=== PATIENT | female | born 1980 | race American Indian/Alaskan Native ===

== ENCOUNTER 2016-08-26 11:35 | Outpatient (CLI) | payer BC ==
--- NOTE | 2016-08-26 14:49 | Ultrasound Report ---
BILATERAL DIGITAL DIAGNOSTIC MAMMOGRAM with CAD and LEFT BREAST ULTRASOUND: 08/26/16 11:35:00 CLINICAL: Left brownish and reddish nipple discharge. COMPARISON:None. FINDINGS: The breasts are heterogeneously dense, which may obscure small masses and the breasts are of sufficient density to limit the sensitivity of mammography.No mass, architectural distortion or suspicious calcifications. No mammographic abnormality is identified and a palpable marker at 6 o'clock just a few centimeters from the nipple. Ultrasound of the left breast (including all four quadrants and the retroareolar area) was performed. A dilated duct is identified at 3:30 o'clock 4 cm from the nipple. It contains a 1.7 x 0.5 x 0.5 cm mass. No blood flow was detected by color Doppler. No other mass and no cysts or suspicious shadowing. IMPRESSION: A 1.7 cm intraductal mass at 3:30 o'clock 4 cm from the nipple. BI-RADS CATEGORY: 4--Suspicious RECOMMENDATION: Ultrasound-guided vacuum-assisted needle core biopsy. ACR BI-RADS MAMMOGRAPHIC CODES: 0 = Needs additional imaging evaluation; 1 = Negative; 2 = Benign; 3 = Probably benign; 4 = Suspicious; 5 = Malignant; 6 = Known biopsy-proven malignancy COMMENT: 1. Dense breast tissue, i.e., adenosis, fibrocystic changes, etc., may obscure an underlying neoplasm. 2. Approximately 10% of cancers are not detected with mammography. 3. A negative mammography report should not delay biopsy if a clinically suspicious mass is present. COMMENT: Patient follow-up letters are generated by our [employer] application.
== END 2016-08-26 11:36 | disposition home or self-care (01) ==
LOC: SPVWC 11:35
PROVIDERS: ATTEND Surgery
DX: N64.52 Nipple discharge (principal); N63 Unspecified lump in breast
CPT/HCPCS: 76641; G0204; 77066

== ENCOUNTER 2016-09-16 07:21 | Inpatient (IN) | payer BC ==
[2016-09-16] MEDS ORDERED: XYLOCAINE 1% 20 mL ONE (08:06)
[2016-09-16] MEDS ORDERED: SUBLIMAZE IV PRN (08:36)
[2016-09-16] MEDS ORDERED: ZOFRAN IV PRN (08:36)
[2016-09-16] MEDS ORDERED: VERSED IV NR (09:00)
[2016-09-16] MEDS ORDERED: PEPCID PO NR (09:00)
[2016-09-16] MEDS ORDERED: DILAUDID ONE (09:23)
[2016-09-16] MEDS ORDERED: DIPRIVAN 10 MG/ML IV ONE (09:23)
[2016-09-16] MEDS ORDERED: XYLOCAINE MPF 2% ONE (09:24)
[2016-09-16] MEDS ORDERED: NACL BACTERIOSTATIC INFILTRATI ONE (09:46)
--- NOTE | 2016-09-16 09:59 | Anesthesia Day of Surgery ---
Anesthesia Day of Surgery - Day of Surgery Patient Examined: Yes Patient H&P Reviewed: Yes Patient is NPO: Yes
--- NOTE | 2016-09-16 10:01 | Anesthesia Consultation ---
Anesthesia Consult and Med Hx - Airway Anesthetic Teeth Evaluation: Good ROM Head & Neck: Adequate Mental/Hyoid Distance: Adequate Mallampati Class: Class II Intubation Access Assessment: Probably Good - Pulmonary Exam CTA: Yes - Cardiac Exam Cardiac Exam: No Murmur - Pre-Operative Health Status ASA Pre-Surgery Classification: ASA2 Proposed Anesthetic Plan: General - Pulmonary Hx Smoking: No Hx Sleep Apnea: No - Central Nervous System Hx Psychiatric Problems: No - Other Systems Hx Alcohol Use: Yes (occasional) Hx Cancer: No - Additional Comments Anesthesia Medical History Comments: NPO after MN. Pt had what appeared to be a vagal episode during needle loc which was similar to episode with bx.EKG pending. Possible reaction to Lidocaine.
--- NOTE | 2016-09-16 10:18 | Procedure Note ---
Date of procedure: 09/16/16 Pre-op diagnosis: lt. breast lesion Post-op diagnosis: same Procedure: lt.breast loc Findings: n/a Anesthesia: local Surgeon: DEDRICK FISH Estimated blood loss: none Pathology: none Condition: stable (surgery)
[2016-09-16] MEDS: NACL 0.9% 1000 ML 1,000 ML IV SCH (10:20)
[2016-09-16] MEDS ORDERED: ANCEF/STERILE WATER 2 GM/20 ML 2 GM/20 ML SYRINGE IV ONE (10:26)
--- NOTE | 2016-09-16 10:35 | Short Stay Summary ---
Short Stay Documentation Date of service: 09/16/16 - History H&P: obtained from office - Allergies and Medications Current Medications: Allergies grapefruit Allergy (Verified 09/12/16 10:47) Swelling of throat, hives, respiratory distress meperidine HCl [From Demerol] Allergy (Verified 09/12/16 10:47) PUTS ME IN A TRANCE LIKE STATE promethazine HCl [From Phenergan] Allergy (Verified 09/12/16 10:47) PUTS ME IN A TRANCE LIKE STATE Home Medications Medication Instructions Recorded Confirmed Last Taken Type No Known Home Medications [No 09/12/16 09/12/16 Unknown History Reported Home Medications] Active Medications Famotidine (Pepcid) 20 mg PO PREOP NR Stop: 09/16/16 23:59 Last Admin: 09/16/16 10:17 Dose: 20 mg Fentanyl (Sublimaze) 50 mcg IV Q5MIN PRN PRN Reason: Pain , Severe (7-10) Stop: 09/16/16 16:00 Hydromorphone HCl (Dilaudid) 0.25 mg IV Q10MIN PRN PRN Reason: Pain, Moderate (4-6) Stop: 09/16/16 16:00 Sodium Chloride (Nacl 0.9% 1000 Ml) 1,000 mls @ 100 mls/hr IV DIRECT ROMAN Last Admin: 09/16/16 10:20 Dose: 100 mls/hr Midazolam HCl (Versed) 2 mg IV PREOP NR Stop: 09/16/16 23:59 Last Admin: 09/16/16 10:24 Dose: 2 mg Ondansetron HCl (Zofran) 4 mg IV ONCE PRN PRN Reason: Nausea And Vomiting Stop: 09/16/16 16:00 - Brief post op/procedure progress note Date of procedure: 09/16/16 Pre-op diagnosis: Left breast intraductal papilloma and bloody nipple discharge Post-op diagnosis: same Procedure: Left needle localization excisional biopsy and left nipple terminal duct excisional biopsy Anesthesia: GETA Findings: Wire and clip present within radiograph specimen; left nipple terminal duct excisional biopsy Surgeon: GORDON MATOS Estimated blood loss: minimal Pathology: list (left terminal duct excisional biopsy, left needle localization excisional biopsy) Specimen disposition: to lab Condition: stable - Disposition Condition at discharge: Good Disposition: DISCHARGED TO HOME OR SELFCARE Short Stay Discharge Plan Activity: other (no heavy lifting) Diet: regular Wound: other (keep incision clean and dry; may shower in 24 hours; no baths, pools or lakes) Follow up with: RUBEN CAVAZOS MD [Primary Care Provider] - 7 Days GORDON MATOS MD [Staff Physician] - 7 Days Prescriptions: HYDROcodone/APAP 5-325 [[place] 5/325] 1 each PO Q6HR PRN #30 tablet PRN Reason: Pain
[2016-09-16] MEDS ORDERED: ceFAZolin 2 GM in NACL 0.9% 100 ML IV ONE (10:36)
--- NOTE | 2016-09-16 10:53 | Mammography Report ---
Left needle localization: Using mammographic grid technique with an inferior approach a localizing marker was targeted. The skin was cleansed and 1% lidocaine used local anesthesia. A 5 cm needle was successfully placed adjacent to the marker confirmed with mammography. A wire was then introduced with removal of the needle was additional mammographic confirmation. It is of note that the patient had vasovagal responses during the study with no sequelae.
[2016-09-16] MEDS ORDERED: WATER FOR IRRIG STERILE IR ONE (10:58)
[2016-09-16] MEDS ORDERED: ANCEF/STERILE WATER 2 GM/20 ML 2 GM/20 ML SYRINGE IV SCH (11:00)
--- NOTE | 2016-09-16 11:43 | Mammography Report ---
Operative surgical specimen: A single tissue specimen is submitted that includes the localizing wire and targeted marker.
--- NOTE | 2016-09-16 13:03 | Operative Report ---
Operative Report Operative Report: Date of procedure:September 16, 2016 Pre-operative diagnosis: Left bloody nipple discharge and left breast intraductal papilloma Post-operative diagnosis: Same Procedure name(s): Left nipple terminal duct excisional biopsy and left breast needle localization excisional biopsy of intraductal papilloma Surgeon: Marbella Coulter MD Anesthesia: General Findings: Left Drains: None Complications: None Disposition: PACU in good condition Indications for operative procedure:This is a 35 year old lady with known left breast intraductal papilloma at the 4 o'clock position 4 cm from nipple and left nipple spontaneous bloody nipple discharge. Recommendations were to proceed with a left nipple terminal duct excisional biopsy and left needle localization excisional biopsy of known intraductal papilloma. Patient wished to proceed with the above procedure. Procedure in Detail: Radiology placed localizing wire to identify the area of clip present from prior papilloma biopsy. Patient was taken to the operative room and was laid supine. Gen. anesthesia was administered. The left breast was prepped and draped in the normal sterile operative fashion. Lacrimal probe was placed inside duct that was noted to have spontaneous bleeding. The left lateral breast wire was identified. A skin incision was made with a 15 blade knife with dissection taken down to the subcutaneous tissues. First began with raising of superior flap followed laterally, inferiorly and then medially. The excisional biopsy of known papilloma was then removed posteriorly with the Bovie cautery. Hemostasis was noted. Specimen was appropriately marked and sent to pathology. Attention was then taken towards the left nipple terminal duct excisional biopsy. A skin incision was made around the nipple areolar complex with a 15 blade knife and then began raising of the flap posterior to the nipple for excision of the terminal ducts that was then taken down posteriorly. The lacrimal probe was encountered with duct of concern identified that was appropriately dissected down posteriorly with dissection taken down 3 cm and tissue appropriately removed. Superior to the duct of concern nodule was noted and was left intact with the specimen. The specimen was then taken to pathology and appropriately oriented for the pathologist for identification of the duct with concerns of additional papilloma/nodule posterior to the nipple at the superior aspect of the duct. Attention was then taken towards the closure of both breast incisions. The left lateral breast incision was noted for hemostasis. The cavity was irrigated and suctioned. The subcutaneous tissues were approximated and closed with interrupted 3-0 Vicryl and running 4-0 Monocryl and skin affix. Hemostasis was obtained with a Bovie cautery of the nipple areolar complex incision. Cavity was appropriately irrigated and suctioned. The subcutaneous tissues were approximated and closed using interrupted 3-0 Vicryl and running 4- 0 Monocryl and skin affix. The patient tolerated surgery very well and she was awakened from anesthesia without any complications and transferred to PACU in good condition.
[2016-09-16] MEDS ORDERED: DECADRON ONE (13:32)
[2016-09-16] MEDS ORDERED: BREVIBLOC IV ONE (13:32)
[2016-09-16] MEDS ORDERED: ZOFRAN ONE (13:32)
[2016-09-16] MEDS ORDERED: VERSED ONE (13:33)
[2016-09-16] MEDS: DILAUDID IV PRN ×5 (13:41→20:59)
--- NOTE | 2016-09-16 13:52 | Post Anesthesia Evaluation ---
- Post Anesthesia Evaluation Patient Participated: Yes Airway Patent: Yes Stable Respiratory Function: Yes Nausea/Vomiting: No Temp > 96.8F: Yes Pain Manageable: Yes Adequeate Hydration: Yes Anesthesia Complications: No Block Receding Appropriately: Not Applicable Patient on Ventilator: No
[2016-09-16] MEDS ORDERED: TORADOL ONE (14:02)
[2016-09-16] MEDS ORDERED: TORADOL IV PRN (14:06)
[2016-09-16] MEDS ORDERED: TORADOL IV ONE (14:15)
[2016-09-16] MEDS ORDERED: NORCO 5/325 PO PRN ×2 (14:30→16:22)
--- NOTE | 2016-09-16 16:12 | Progress Note ---
Subjective Date of service: 09/16/16 Principal diagnosis: Seizures Interval history: Patient had seizures x 2 in the PACU recovery. Lasted about 1 minute and consisted of patient shaking all over and becoming unresponsive. No tongue biting or urination/defecation. Seizures were about 15 minutes apart. She was given Versed 2mg initially. Currently, patient is doing well and responsive, answering questions, alert and oriented. She reports having a seizure once before 10 yrs ago after a tubal ligation. She was told the cause may have been the anesthesia. Dr. Cuevas (hospitalist) called to see patient since there is no neurologist radiotelephone operator. Dr. Cuevas will admit the patient. Objective - Constitutional Vitals: Vital Signs - 12hr 09/16/16 09/16/16 09/16/16 08:00 08:02 12:48 Temperature 97.9 F 97.9 F 99.1 F Pulse Rate 84 83 100 H Respiratory 20 20 22 Rate Blood Pressure 131/88 131/88 131/83 O2 Sat by Pulse 99 99 100 Oximetry 09/16/16 09/16/16 09/16/16 12:55 13:00 13:10 Temperature Pulse Rate 94 H 88 99 H Respiratory 22 14 14 Rate Blood Pressure 123/75 122/89 122/89 O2 Sat by Pulse 100 100 100 Oximetry 09/16/16 09/16/16 09/16/16 13:30 13:41 13:53 Temperature Pulse Rate 91 H Respiratory 20 20 21 Rate Blood Pressure 122/90 O2 Sat by Pulse 99 Oximetry 09/16/16 09/16/16 09/16/16 13:58 14:09 14:11 Temperature Pulse Rate 90 Respiratory 14 16 20 Rate Blood Pressure 123/87 O2 Sat by Pulse 99 Oximetry 09/16/16 14:12 Temperature Pulse Rate Respiratory 16 Rate Blood Pressure O2 Sat by Pulse Oximetry - Labs CBC & Chem 7: 09/16/16 15:24 09/16/16 15:25
[2016-09-16 16:32] LABS: Hematocrit 40.2 % (30.3-42.9); Hemoglobin 12.9 gm/dl (10.1-14.3); Mean Corpuscular HGB Conc 32 % (30-34); Mean Corpuscular Hemoglobin 28 pg (28-32); Mean Corpuscular Volume 89 fl (79-97); Platelet Count 174 K/mm3 (140-440); Red Blood Count 4.53 M/mm3 (3.65-5.03); Red Cell Distribution Width 12.9 % (13.2-15.2); White Blood Count 3.5 K/mm3 (4.5-11.0)
[2016-09-16 16:48] LABS: Magnesium 1.6 mg/dL (1.7-2.3); Phosphorous 2.8 mg/dL (2.5-4.5)
[2016-09-16 16:49] LABS: Anion Gap 14 mmol/L; BUN/Creatinine Ratio 13.33; Blood Urea Nitrogen 8 mg/dL (7-17); Calcium 8.3 mg/dL (8.4-10.2); Carbon Dioxide 22 mmol/L (22-30); Chloride 104.9 mmol/L (98-107); Glucose 111 mg/dL (65-100); Potassium 4.2 mmol/L (3.6-5.0); Sodium 137 mmol/L (137-145)
[2016-09-16] MEDS ORDERED: DULCOLAX PR PRN (17:29)
[2016-09-16] MEDS ORDERED: TYLENOL PO PRN (17:29)
[2016-09-16] MEDS ORDERED: MILK OF MAGNESIA PO PRN (17:29)
[2016-09-16] MEDS ORDERED: PERCOCET 5/325 PO PRN (17:29)
--- NOTE | 2016-09-16 17:29 | History and Physical Report ---
History of Present Illness Date of examination: 09/16/16 Date of admission: 09/16/16 Chief complaint: Seizures-postop x2 in PACU History of present illness: 35-year-old female underwent outpatient procedure for left bloody nipple discharge and left breast intraductal papilloma who developed seizures 2 postoperatively. Seizures were described as generalized tonic-clonic lasting for approximately 1 minute and 15 minutes apart. Patient was admitted to the hospital for further evaluation. Patient developed 2 more seizures this morning. Code met was called. Upon my arrival, patient was noted to be in a post ictal state but hemodynamically stable. No new seizure activity. Past History Past Medical History: No medical history Past Surgical History: Other (L Breast excisional biopsy) Social history: no significant social history, lives with family, full code Family history: hypertension Medications and Allergies Allergies Allergy/AdvReac Type Severity Reaction Status Date / Time grapefruit Allergy Swelling Verified 09/12/16 10:47 of throat, hives, respiratory distress meperidine HCl [From Demerol] Allergy PUTS ME IN Verified 09/12/16 10:47 A TRANCE LIKE STATE promethazine HCl Allergy PUTS ME IN Verified 09/12/16 10:47 [From Phenergan] A TRANCE LIKE STATE lidocaine AdvReac Unknown Verified 09/16/16 11:09 Home Medications Medication Instructions Recorded Confirmed Last Taken Type HYDROcodone/APAP 5-325 [[place] 1 each PO Q6HR PRN #30 tablet 09/16/16 Unknown Rx 5/325] Active Meds: Active Medications Acetaminophen/Hydrocodone Bitart ([place] 5/325) 1 each PO Q6H PRN PRN Reason: Pain, Moderate (4-6) Stop: 09/16/16 23:59 Acetaminophen/Hydrocodone Bitart ([place] 5/325) 1 each PO Q4H PRN PRN Reason: Pain, Moderate (4-6) Last Admin: 09/16/16 16:46 Dose: 1 each Famotidine (Pepcid) 20 mg PO PREOP NR Stop: 09/16/16 23:59 Last Admin: 09/16/16 10:17 Dose: 20 mg Sodium Chloride (Nacl 0.9% 1000 Ml) 1,000 mls @ 100 mls/hr IV DIRECT ROMAN Last Admin: 09/16/16 10:20 Dose: 100 mls/hr Cefazolin Sodium (Ancef/Sterile Water 2 Gm/20 Ml) 2 gm in 20 mls @ 80 mls/hr IV PREOP ROMAN Stop: 09/16/16 23:59 Midazolam HCl (Versed) 2 mg IV PREOP NR Stop: 09/16/16 23:59 Last Admin: 09/16/16 10:24 Dose: 2 mg Review of Systems All systems: negative Constitutional: no weight loss, no weight gain, no fever Ears, nose, mouth and throat: no hoarseness, no sore throat Breasts: no mass Cardiovascular: no lightheadedness, no shortness of breath, no dyspnea on exertion Respiratory: no shortness of breath, no dyspnea on exertion, no congestion Gastrointestinal: no nausea, no vomiting, no diarrhea Genitourinary Female: no pelvic pain, no flank pain, no menorrhagia, no dysuria , no urinary frequency, no urgency, no stress incontinence Musculoskeletal: no neck stiffness, no neck pain Integumentary: no rash, no pruritis, no redness, no sores, no wounds Neurological: seizures, convulsions, no syncope Psychiatric: no anxiety, no memory loss, no change in sleep habits Endocrine: no polyphagia, no excessive thirst, no polydipsia, no polyuria Hematologic/Lymphatic: no easy bruising, no easy bleeding Allergic/Immunologic: no urticaria, no allergic rhinitis, no wheezing Exam - Physical Exam Narrative exam: Well developed well nourished female - Constitutional Vitals: Temp Pulse Resp BP Pulse Ox 99 F 106 H 19 126/94 98 09/16/16 17:10 09/16/16 17:10 09/16/16 17:10 09/16/16 17:10 09/16/16 17:10 General appearance: Present: no acute distress, well-nourished - EENT Eyes: Present: PERRL ENT: hearing intact, clear oral mucosa - Neck Neck: Present: supple, normal ROM - Respiratory Respiratory effort: normal Respiratory: bilateral: CTA - Cardiovascular Rhythm: regular Heart Sounds: Present: S1 & S2. Absent: rub, click - Extremities Extremities: pulses symmetrical, No edema Peripheral Pulses: within normal limits - Abdominal General gastrointestinal: Present: soft, non-tender, non-distended, normal bowel sounds Female genitourinary: Present: normal - Integumentary Integumentary: Present: clear, warm, dry - Musculoskeletal Musculoskeletal: gait normal, strength equal bilaterally - Psychiatric Psychiatric: appropriate mood/affect, intact judgment & insight - Neurologic Neurologic: CNII-XII intact, moves all extremities - Allied Health Allied health notes reviewed: nursing, case management Results - Labs CBC & Chem 7: 09/17/16 05:13 09/17/16 05:13 Labs: Laboratory Last Values WBC 3.5 K/mm3 (4.5-11.0) L 09/16/16 15:24 RBC 4.53 M/mm3 (3.65-5.03) 09/16/16 15:24 Hgb 12.9 gm/dl (10.1-14.3) 09/16/16 15:24 Hct 40.2 % (30.3-42.9) 09/16/16 15:24 MCV 89 fl (79-97) 09/16/16 15:24 MCH 28 pg (28-32) 09/16/16 15:24 MCHC 32 % (30-34) 09/16/16 15:24 RDW 12.9 % (13.2-15.2) L 09/16/16 15:24 Plt Count 174 K/mm3 (140-440) 09/16/16 15:24 Sodium 137 mmol/L (137-145) 09/16/16 15:25 Potassium 4.2 mmol/L (3.6-5.0) 09/16/16 15:25 Chloride 104.9 mmol/L (98-107) 09/16/16 15:25 Carbon Dioxide 22 mmol/L (22-30) 09/16/16 15:25 Anion Gap 14 mmol/L 09/16/16 15:25 BUN 8 mg/dL (7-17) 09/16/16 15:25 Creatinine 0.6 mg/dL (0.7-1.2) L 09/16/16 15:25 Estimated GFR > 60 ml/min 09/16/16 15:25 BUN/Creatinine Ratio 13.33 % 09/16/16 15:25 Glucose 111 mg/dL (65-100) H 09/16/16 15:25 Calcium 8.3 mg/dL (8.4-10.2) L 09/16/16 15:25 Phosphorus 2.8 mg/dL (2.5-4.5) 09/16/16 15:28 Magnesium 1.6 mg/dL (1.7-2.3) L 09/16/16 15:28 Short CBC 09/16/16 09/16/16 09/17/16 Range/Units 15:24 19:45 05:13 WBC 3.5 L 5.2 3.9 L (4.5-11.0) K/mm3 Hgb 12.9 12.1 12.0 (10.1-14.3) gm/dl Hct 40.2 37.6 36.3 (30.3-42.9) % Plt Count 174 171 152 (140-440) K/mm3 BMP 09/16/16 09/16/16 09/17/16 15:25 19:45 05:13 Sodium 137 138 142 Potassium 4.2 4.0 3.7 Chloride 104.9 106.0 109.9 H Carbon Dioxide 22 20 L 20 L BUN 8 8 8 Creatinine 0.6 L 0.5 L 0.5 L Glucose 111 H 104 H 88 Calcium 8.3 L 8.0 L 8.1 L Assessment and Plan Advance Directives: Yes (Full code) VTE prophylaxis?: Chemical Plan of care discussed with patient/family: Yes - Patient Problems (1) Seizure disorder Current Visit: Yes Status: Acute Plan to address problem: New onset.Postop anesthesia complication sec to Anesthetic drugs in differential diagnosis.Will start on IV Keppra 750 mg q12.Possibly EEG.Seizures more Myoclonic than clonic tonic seizures. Also Ativan 1 mg prn Neurology consult ordered. (2) Breast mass, left Current Visit: Yes Status: Acute Plan to address problem: Patient had excisional biopsy of L breast (3) Encephalopathy acute Current Visit: Yes Status: Acute Plan to address problem: Post ictal. (4) DVT prophylaxis Current Visit: Yes Status: Acute Plan to address problem: On Lovenox
[2016-09-16] MEDS ORDERED: ATIVAN ONE (17:36)
[2016-09-16] MEDS ORDERED: ATIVAN IV ONE (18:00)
--- NOTE | 2016-09-16 18:25 | Admit Criteria Form ---
Admission Criteria Documentation: SEIZURE Clinical Indications for Admission to Inpatient Care (Place 'X' for any and all applicable criteria): Admission is indicated for seizure and ANY ONE of the following(1)(2)(3)(4)(5): [ X]I. Inpatient admission required rather than observation care (Also use Seizure: Observation Care Criteria as appropriate) because of ANY ONE of the following: [ ]a) Altered mental status that is severe or persistent [ ]b) New focal neurologic deficit that is severe or persistent [ ]c) Metabolic disorder (eg, hypoglycemia, hyponatremia) that is severe or persistent [ ]d) Recurrent seizure [ ]e) Outpatient antiseizure regimen cannot be established (eg , patient cannot tolerate medication, initiation requires inpatient care) [ ]f) Need for ongoing intravenous infusion of antiseizure medication [ ]g) Cardiac arrhythmias of immediate concern [ ]h) Cerebral bleeding, hydrocephalus, or vasospasm monitoring (14) [ ]i) Increased intracranial pressure or cerebral edema monitoring (15) [X ]j) Other treatment or monitoring requiring inpatient admission [ ]II. Status epilepticus [A] or repetitive seizures not controlled with emergent treatment (6)(8) [ ]III. Brain disorder (eg, tumor, edema, and hydrocephalus) that requiring monitoring or intervention available only at inpatient level of care. [ ]IV. Brain insult (eg, severe trauma, stroke, drug toxicity, or withdrawal) that requires monitoring or intervention available only at inpatient level of care (10)(11) Extended stay beyond goal length of stay may be needed for (22) [ ]a) Complications of status epilepticus [ ]b) Refractory status epilepticus [ ]c) Etiology-specific therapy for conditions such as PRIVACY OFFICER infection, head injury,eclampsia, severe metabolic abnormalities, and brain tumor [ ]d) Residual neurologic damage, [ ]e) Initiation of significant change to anticonvulsant treatment [ ]f) Older patients (65 years or older) [ ]g) Patient requiring intubation (eg, to protect airway) The original [facility] content created by [employer] has been revised. The portions of the content which have been revised are identified through the use of italic text or in bold, and [facility] [employer] has neither reviewed nor approved the modified material. All other unmodified content is copyright [facility] [employer]. Please see references footnoted in the original [facility] edition 2016 Admission Criteria Met: Yes
[2016-09-16] MEDS ORDERED: KEPPRA 750 MG in D5W 100 ML IV SCH (20:00)
[2016-09-16 20:07] LABS: Basophils % (Auto) 0.2 % (0.0-1.8); Hematocrit 37.6 % (30.3-42.9); Hemoglobin 12.1 gm/dl (10.1-14.3); Mean Corpuscular HGB Conc 32 % (30-34); Mean Corpuscular Hemoglobin 29 pg (28-32); Mean Corpuscular Volume 89 fl (79-97); Platelet Count 171 K/mm3 (140-440); Red Blood Count 4.24 M/mm3 (3.65-5.03); Red Cell Distribution Width 13.2 % (13.2-15.2); White Blood Count 5.2 K/mm3 (4.5-11.0)
[2016-09-16 20:19] LABS: Anion Gap 16 mmol/L; Blood Urea Nitrogen 8 mg/dL (7-17); Carbon Dioxide 20 mmol/L (22-30); Glucose 104 mg/dL (65-100); Sodium 138 mmol/L (137-145)
[2016-09-16] MEDS ORDERED: MAGNESIUM SULFATE 2GM/50ML 2 GM/50 ML BAG IV ONE (20:36)
[2016-09-16] MEDS: ATIVAN IV PRN (21:00)
[2016-09-17] MEDS: DILAUDID IV PRN ×3 (04:22→19:09)
[2016-09-17] MEDS: ATIVAN IV PRN ×4 (04:23→19:45)
[2016-09-17 06:00] LABS: Basophils % (Auto) 0.5 % (0.0-1.8); Eosinophils % (Auto) 0.7 % (0.0-4.3); Hematocrit 36.3 % (30.3-42.9); Mean Corpuscular HGB Conc 33 % (30-34); Mean Corpuscular Hemoglobin 29 pg (28-32); Mean Corpuscular Volume 88 fl (79-97); Platelet Count 152 K/mm3 (140-440); Red Blood Count 4.13 M/mm3 (3.65-5.03); Red Cell Distribution Width 12.8 % (13.2-15.2); White Blood Count 3.9 K/mm3 (4.5-11.0)
[2016-09-17 06:12] LABS: Anion Gap 16 mmol/L; Blood Urea Nitrogen 8 mg/dL (7-17); Calcium 8.1 mg/dL (8.4-10.2); Carbon Dioxide 20 mmol/L (22-30); Chloride 109.9 mmol/L (98-107); Glucose 88 mg/dL (65-100); Potassium 3.7 mmol/L (3.6-5.0); Sodium 142 mmol/L (137-145)
[2016-09-17] MEDS: KEPPRA 750 MG in D5W 100 ML IV SCH ×2 (07:46→18:21)
--- NOTE | 2016-09-17 08:42 | Progress Note ---
Assessment and Plan This is a 35 year old lady with left breast intraductal papilloma status post excision yesterday admitted for seizures overnight. 1. Patient with continued seizure-like activity and admitted by Dr. Cuevas and started on ativan and keppra. 2. Continue to monitor patient closely and primary mgt by Dr. Cuevas. 3. Seizures most probable for post anesthesia reaction, patient will need to be seen by Neurology. 4. Left breast incisions healing nicely, patient with follow-up next . Subjective Date of service: 09/17/16 Principal diagnosis: Seizures Interval history: This is a 35 year old lady POD#1 left nipple terminal duct excisional biopsy and left breast needle localization excisional biopsy for intraductal papilloma and left nipple spontaneous bloody nipple discharge. Patient admitted yesterday following surgery due to seizures. Patient with stable vital signs overnight and 3 episodes of seizure-like activity treated with ativan and currently on keppra. Objective - Constitutional Vitals: Vital Signs - 12hr 09/16/16 09/16/16 09/16/16 20:59 22:00 23:00 Temperature 98.0 F Pulse Rate [ 88 Right] Respiratory 18 18 16 Rate Blood Pressure 107/72 [Left Arm] O2 Sat by Pulse Oximetry 09/17/16 09/17/16 05:00 08:00 Temperature 98.4 F 98.5 F Pulse Rate [ 101 H 102 H Right] Respiratory 20 18 Rate Blood Pressure 110/66 114/64 [Left Arm] O2 Sat by Pulse 99 Oximetry General appearance: Present: no acute distress, well-nourished - EENT Eyes: PERRL, EOM intact ENT: hearing intact, clear oral mucosa, dentition normal Ears: bilateral: normal - Neck Neck: supple, normal ROM - Respiratory Respiratory effort: normal Respiratory: bilateral: CTA - Breasts Breasts: other (left breast incisions healing nicely, no hematoma, nontender) - Cardiovascular Rhythm: regular Extremities: no ischemia, pulses intact, pulses symmetrical, No edema, normal temperature, normal color, Full ROM - Gastrointestinal General gastrointestinal: Present: soft, non-tender, non-distended - Genitourinary Female genitourinary: deferred - Integumentary Integumentary: clear, warm, dry - Musculoskeletal Musculoskeletal: strength equal bilaterally - Neurologic Neurologic: CNII-XII intact, moves all extremities - Psychiatric Psychiatric: appropriate mood/affect, intact judgment & insight, memory intact, cooperative - Labs CBC & Chem 7: 09/17/16 05:13 09/17/16 05:13 Labs: Abnormal lab results 09/16/16 09/16/16 09/16/16 Range/Units 15:24 15:25 15:28 WBC 3.5 L (4.5-11.0) K/mm3 RDW 12.9 L (13.2-15.2) % Lymph % (Auto) (13.4-35.0) % [place] % (Auto) (0.0-7.3) % Lymph # (1.2-5.4) K/mm3 Seg Neutrophils % (40.0-70.0) % Chloride (98-107) mmol/L Carbon Dioxide (22-30) mmol/L Creatinine 0.6 L (0.7-1.2) mg/dL Glucose 111 H (65-100) mg/dL Calcium 8.3 L (8.4-10.2) mg/dL Magnesium 1.6 L (1.7-2.3) mg/dL 09/16/16 09/16/16 09/17/16 Range/Units 19:45 19:45 05:13 WBC 3.9 L (4.5-11.0) K/mm3 RDW 12.8 L (13.2-15.2) % Lymph % (Auto) 12.1 L (13.4-35.0) % [place] % (Auto) 9.4 H (0.0-7.3) % Lymph # 0.6 L 1.0 L (1.2-5.4) K/mm3 Seg Neutrophils % 84.4 H (40.0-70.0) % Chloride (98-107) mmol/L Carbon Dioxide 20 L (22-30) mmol/L Creatinine 0.5 L (0.7-1.2) mg/dL Glucose 104 H (65-100) mg/dL Calcium 8.0 L (8.4-10.2) mg/dL Magnesium (1.7-2.3) mg/dL 09/17/16 Range/Units 05:13 WBC (4.5-11.0) K/mm3 RDW (13.2-15.2) % Lymph % (Auto) (13.4-35.0) % [place] % (Auto) (0.0-7.3) % Lymph # (1.2-5.4) K/mm3 Seg Neutrophils % (40.0-70.0) % Chloride 109.9 H (98-107) mmol/L Carbon Dioxide 20 L (22-30) mmol/L Creatinine 0.5 L (0.7-1.2) mg/dL Glucose (65-100) mg/dL Calcium 8.1 L (8.4-10.2) mg/dL Magnesium (1.7-2.3) mg/dL
[2016-09-17] MEDS: ZOFRAN IV PRN (09:14)
--- NOTE | 2016-09-17 10:32 | Progress Note ---
Assessment and Plan Assessment and plan: 1. Seizure disorder. Check EEG. Continue Keppra IV and Ativan when necessary. Neurology consultation pending. Check MRI. 2. Left breast intraductal papilloma. Patient is status post excisional biopsy. Continue per surgery. 3. Acute encephalopathy. Etiology secondary to #1. Patient currently post ictal. Continue seizure precautions a monitor closely. History Interval history: 35-year-old female underwent outpatient procedure for left bloody nipple discharge and left breast intraductal papilloma who developed seizures 2 postoperatively. Seizures were described as generalized tonic-clonic lasting for approximately 1 minute and 15 minutes apart. Patient was admitted to the hospital for further evaluation. Patient developed 2 more seizures this morning. Code met was called. Upon my arrival, patient was noted to be in a post ictal state but hemodynamically stable. No new seizure activity. Hospitalist Physical - Constitutional Vitals: Temp Pulse Resp BP Pulse Ox 98.5 F 102 H 18 114/64 99 09/17/16 08:00 09/17/16 08:00 09/17/16 08:00 09/17/16 08:00 09/17/16 08:00 General appearance: Present: well-nourished, other (postictal, somnolent) - EENT Eyes: Present: PERRL, EOM intact ENT: hearing intact, clear oral mucosa, dentition normal - Neck Neck: Present: supple, normal ROM - Respiratory Respiratory effort: normal Respiratory: bilateral: CTA - Cardiovascular Rhythm: regular Heart Sounds: Present: S1 & S2. Absent: gallop, rub - Extremities Extremities: no ischemia, No edema, Full ROM - Abdominal General gastrointestinal: soft, non-tender, non-distended, normal bowel sounds - Integumentary Integumentary: Present: clear, warm, dry - Neurologic Neurologic: CNII-XII intact, moves all extremities Results - Labs CBC & Chem 7: 09/17/16 05:13 09/17/16 05:13 Labs: Laboratory Last Values WBC 3.9 K/mm3 (4.5-11.0) L 09/17/16 05:13 RBC 4.13 M/mm3 (3.65-5.03) 09/17/16 05:13 Hgb 12.0 gm/dl (10.1-14.3) 09/17/16 05:13 Hct 36.3 % (30.3-42.9) 09/17/16 05:13 MCV 88 fl (79-97) 09/17/16 05:13 MCH 29 pg (28-32) 09/17/16 05:13 MCHC 33 % (30-34) 09/17/16 05:13 RDW 12.8 % (13.2-15.2) L 09/17/16 05:13 Plt Count 152 K/mm3 (140-440) 09/17/16 05:13 Lymph % (Auto) 26.4 % (13.4-35.0) 09/17/16 05:13 [place] % (Auto) 9.4 % (0.0-7.3) H 09/17/16 05:13 Eos % (Auto) 0.7 % (0.0-4.3) 09/17/16 05:13 Baso % (Auto) 0.5 % (0.0-1.8) 09/17/16 05:13 Lymph # 1.0 K/mm3 (1.2-5.4) L 09/17/16 05:13 [place] # 0.4 K/mm3 (0.0-0.8) 09/17/16 05:13 Eos # 0.0 K/mm3 (0.0-0.4) 09/17/16 05:13 Baso # 0.0 K/mm3 (0.0-0.1) 09/17/16 05:13 Seg Neutrophils % 63.0 % (40.0-70.0) 09/17/16 05:13 Seg Neutrophils # 2.5 K/mm3 (1.8-7.7) 09/17/16 05:13 Sodium 142 mmol/L (137-145) 09/17/16 05:13 Potassium 3.7 mmol/L (3.6-5.0) 09/17/16 05:13 Chloride 109.9 mmol/L (98-107) H 09/17/16 05:13 Carbon Dioxide 20 mmol/L (22-30) L 09/17/16 05:13 Anion Gap 16 mmol/L 09/17/16 05:13 BUN 8 mg/dL (7-17) 09/17/16 05:13 Creatinine 0.5 mg/dL (0.7-1.2) L 09/17/16 05:13 Estimated GFR > 60 ml/min 09/17/16 05:13 BUN/Creatinine Ratio 16.00 % 09/17/16 05:13 Glucose 88 mg/dL (65-100) 09/17/16 05:13 Calcium 8.1 mg/dL (8.4-10.2) L 09/17/16 05:13 Phosphorus 2.8 mg/dL (2.5-4.5) 09/16/16 15:28 Magnesium 1.6 mg/dL (1.7-2.3) L 09/16/16 15:28
[2016-09-17] MEDS: LOVENOX SUB-Q SCH (10:56)
--- NOTE | 2016-09-17 13:14 | Consultation ---
History of Present Illness Chief complaint: seizure History of present illness: This is a 35 YO F who was admitted after having a "seizure" post breast biopsy. There are no specific descriptions but supposedly pt had a tonic clonic event. Pt's family at bedside says pt has had several episodes since being on the floor, she stares with eyes open and all extremities shake. No/brief post ictal phase. Pt apparently can hear everything going on around her but can not respond. Pt had a seizure with anesthesia previously (tubal ligation). On my arrival pt is awake, alert and appropriate. Past History Past Surgical History: Other (tubal ligation) Social history: lives with family Family history: hypertension Medications and Allergies Allergies Allergy/AdvReac Type Severity Reaction Status Date / Time grapefruit Allergy Swelling Verified 09/12/16 10:47 of throat, hives, respiratory distress meperidine HCl [From Demerol] Allergy PUTS ME IN Verified 09/12/16 10:47 A TRANCE LIKE STATE promethazine HCl Allergy PUTS ME IN Verified 09/12/16 10:47 [From Phenergan] A TRANCE LIKE STATE lidocaine AdvReac Unknown Verified 09/16/16 11:09 Home Medications Medication Instructions Recorded Confirmed Last Taken Type HYDROcodone/APAP 5-325 [[place] 1 each PO Q6HR PRN #30 tablet 09/16/16 Unknown Rx 5/325] Active Meds: Active Medications Acetaminophen (Tylenol) 650 mg PO Q4H PRN PRN Reason: Pain MILD(1-3)/Fever >100.5/[place] Acetaminophen/Hydrocodone Bitart ([place] 5/325) 1 each PO Q4H PRN PRN Reason: Pain, Moderate (4-6) Last Admin: 09/16/16 16:46 Dose: 1 each Bisacodyl (Dulcolax) 10 mg MN QDAY PRN PRN Reason: Constipation unrelieved by MOM Enoxaparin Sodium (Lovenox) 40 mg SUB-Q QDAY ROMAN Last Admin: 09/17/16 10:56 Dose: 40 mg Hydromorphone HCl (Dilaudid) 0.5 mg IV Q3H PRN PRN Reason: Pain , Severe (7-10) Last Admin: 09/17/16 04:22 Dose: 0.5 mg Sodium Chloride (Nacl 0.9% 1000 Ml) 1,000 mls @ 100 mls/hr IV DIRECT ROMAN Last Admin: 09/16/16 10:20 Dose: 100 mls/hr Dextrose/Sodium Chloride (D5ns) 1,000 mls @ 75 mls/hr IV DIRECT ROMAN Levetiracetam 750 mg/ Dextrose 107.5 mls @ 400 mls/hr IV Q12H ROMAN Last Admin: 09/17/16 07:46 Dose: 400 mls/hr Lorazepam (Ativan) 1 mg IV Q4H PRN PRN Reason: Seizures Last Admin: 09/17/16 09:39 Dose: 1 mg Magnesium Hydroxide (Milk Of Magnesia) 30 ml PO Q4H PRN PRN Reason: Constipation Ondansetron HCl (Zofran) 4 mg IV Q8H PRN PRN Reason: N/V unrelieved by Reglan Last Admin: 09/17/16 09:14 Dose: 4 mg Oxycodone/Acetaminophen (Percocet 5/325) 1 tab PO Q6H PRN PRN Reason: Pain, Moderate (4-6) Review of Systems Neurological: seizures Physical Examination - Vital Signs Vital Signs: Vital Signs Temp Pulse Resp BP Pulse Ox 97.9 F 84 20 131/88 99 09/16/16 08:00 09/16/16 08:00 09/16/16 08:00 09/16/16 08:00 09/16/16 08:00 - EENT EENT: Present: PERRL - Respiratory Respiratory: Present: lungs clear - Cardiovascular Cardiovascular: Present: regular rate - Neurologic Cranial nerve examination: PERRL, EOMI, V1/V2/V3 grossly intact, face symmetric , tongue midline Motor examination - right side: 5/5: biceps, triceps, wrist flexion, wrist extension, intermediate school teacher, hip flexors, knee extensors, dorsiflexion, toe extension (EHL) , plantarflexion Motor examination - left side: 5/5: biceps, triceps, wrist flexion, wrist extension, intermediate school teacher, hip flexors, knee extensors, dorsiflexion, toe extension (EHL) , plantarflexion Cerebellar examination: other (FNF and HTS intact) Results - Laboratory Findings CBC and BMP: 09/17/16 05:13 09/17/16 05:13 Abnormal Lab Findings: Abnormal Labs 09/16/16 09/16/1609/16/17 15:24 15:25 15:28 WBC 3.5 L RDW 12.9 L Lymph % (Auto) [place] % (Auto) Lymph # Seg Neutrophils % Chloride Carbon Dioxide Creatinine 0.6 L Glucose 111 H Calcium 8.3 L Magnesium 1.6 L 09/16/16 09/16/16 09/17/16 19:45 19:45 05:13 WBC 3.9 L RDW 12.8 L Lymph % (Auto) 12.1 L [place] % (Auto) 9.4 H Lymph # 0.6 L 1.0 L Seg Neutrophils % 84.4 H Chloride Carbon Dioxide 20 L Creatinine 0.5 L Glucose 104 H Calcium 8.0 L Magnesium 09/17/16 05:13 WBC RDW Lymph % (Auto) [place] % (Auto) Lymph # Seg Neutrophils % Chloride 109.9 H Carbon Dioxide 20 L Creatinine 0.5 L Glucose Calcium 8.1 L Magnesium Assessment and Plan This is a 35 YO F with spells post biopsy. Recommend: Pt has been loaded with Keppra. fine to give Ativan PRN. Discharge on Keppra and let her see a neurologist outpatient. EEG and MRI Brain with and without catherine pending. Continue care for her medical issues as you are doing. Can increase Keppra up to 1500 mg BID if needed. Thank you for the consult. Call with questions. No driving as per [place] law post alterations in consciousness.
[2016-09-17] MEDS: NACL 0.9% 1000 ML 1,000 ML IV SCH (13:32)
--- NOTE | 2016-09-17 18:42 | Magnetic Resonance Report ---
FINAL REPORT EXAM: MR BRAIN WO/W CON HISTORY: sz, breast mass TECHNIQUE: MRI brain: Axial T1, T2 , FLAIR, diffusion, and gradient echo axial Sagittal T1 Gadolinium-enhanced T1 in the coronal and axial planes. 12 cc of MultiHance were used for the IV contrast agent. PRIORS: None. FINDINGS: The cerebral hemispheres appear normal without focal lesions. The ventricles and sulci appear normal for age. There are no abnormal extra-axial fluid collections. There is no restricted diffusion. There is no evidence of acute intracranial hemorrhage. The brainstem and cerebellum appear normal. The visualized orbits and visualized paranasal sinuses are unremarkable. IMPRESSION: Normal MRI of the brain without contrast.
[2016-09-18] MEDS: D5NS 1,000 ML IV SCH ×2 (02:46→14:55)
[2016-09-18] MEDS: ATIVAN IV PRN ×5 (06:00→22:00)
[2016-09-18] MEDS: KEPPRA 750 MG in D5W 100 ML IV SCH (06:32)
--- NOTE | 2016-09-18 08:43 | Progress Note ---
Assessment and Plan Assessment and plan: 1. Seizure disorder. EEG pending. MRI is negative. Neurology following. Patient has had more seizures since admission. We will increase Keppra to 1500 mg twice a day as per neurology recommendations. Continue seizure precautions and monitor closely. 2. Left breast intraductal papilloma. Patient is status post excisional biopsy. Continue per surgery. 3. Acute encephalopathy. Etiology secondary to #1. Patient currently post ictal. Continue seizure precautions a monitor closely. History Interval history: 35-year-old female underwent outpatient procedure for left bloody nipple discharge and left breast intraductal papilloma who developed seizures 2 postoperatively. Seizures were described as generalized tonic-clonic. Patient has had several seizures since admission. The latest seizure was this morning. Hospitalist Physical - Constitutional Vitals: Temp Pulse Resp BP Pulse Ox 97.5 F L 89 16 131/85 99 09/18/16 04:25 09/18/16 04:25 09/18/16 04:25 09/18/16 04:25 09/18/16 04:25 General appearance: Present: no acute distress, well-nourished - EENT Eyes: Present: PERRL, EOM intact ENT: hearing intact, clear oral mucosa, dentition normal - Neck Neck: Present: supple, normal ROM - Respiratory Respiratory effort: normal Respiratory: bilateral: CTA - Cardiovascular Rhythm: regular Heart Sounds: Present: S1 & S2. Absent: gallop, rub - Extremities Extremities: no ischemia, No edema, Full ROM - Abdominal General gastrointestinal: soft, non-tender, non-distended, normal bowel sounds - Integumentary Integumentary: Present: clear, warm, dry - Neurologic Neurologic: CNII-XII intact, moves all extremities Results - Labs CBC & Chem 7: 09/17/16 05:13 09/17/16 05:13 Labs: Laboratory Last Values WBC 3.9 K/mm3 (4.5-11.0) L 09/17/16 05:13 RBC 4.13 M/mm3 (3.65-5.03) 09/17/16 05:13 Hgb 12.0 gm/dl (10.1-14.3) 09/17/16 05:13 Hct 36.3 % (30.3-42.9) 09/17/16 05:13 MCV 88 fl (79-97) 09/17/16 05:13 MCH 29 pg (28-32) 09/17/16 05:13 MCHC 33 % (30-34) 09/17/16 05:13 RDW 12.8 % (13.2-15.2) L 09/17/16 05:13 Plt Count 152 K/mm3 (140-440) 09/17/16 05:13 Lymph % (Auto) 26.4 % (13.4-35.0) 09/17/16 05:13 [place] % (Auto) 9.4 % (0.0-7.3) H 09/17/16 05:13 Eos % (Auto) 0.7 % (0.0-4.3) 09/17/16 05:13 Baso % (Auto) 0.5 % (0.0-1.8) 09/17/16 05:13 Lymph # 1.0 K/mm3 (1.2-5.4) L 09/17/16 05:13 [place] # 0.4 K/mm3 (0.0-0.8) 09/17/16 05:13 Eos # 0.0 K/mm3 (0.0-0.4) 09/17/16 05:13 Baso # 0.0 K/mm3 (0.0-0.1) 09/17/16 05:13 Seg Neutrophils % 63.0 % (40.0-70.0) 09/17/16 05:13 Seg Neutrophils # 2.5 K/mm3 (1.8-7.7) 09/17/16 05:13 Sodium 142 mmol/L (137-145) 09/17/16 05:13 Potassium 3.7 mmol/L (3.6-5.0) 09/17/16 05:13 Chloride 109.9 mmol/L (98-107) H 09/17/16 05:13 Carbon Dioxide 20 mmol/L (22-30) L 09/17/16 05:13 Anion Gap 16 mmol/L 09/17/16 05:13 BUN 8 mg/dL (7-17) 09/17/16 05:13 Creatinine 0.5 mg/dL (0.7-1.2) L 09/17/16 05:13 Estimated GFR > 60 ml/min 09/17/16 05:13 BUN/Creatinine Ratio 16.00 % 09/17/16 05:13 Glucose 88 mg/dL (65-100) 09/17/16 05:13 POC Glucose 109 (70-105) H 09/16/16 15:15 Calcium 8.1 mg/dL (8.4-10.2) L 09/17/16 05:13 Phosphorus 2.8 mg/dL (2.5-4.5) 09/16/16 15:28 Magnesium 1.6 mg/dL (1.7-2.3) L 09/16/16 15:28
[2016-09-18] MEDS ORDERED: KEPPRA 1,500 MG in D5W 100 ML IV SCH (09:30)
[2016-09-18] MEDS ORDERED: KEPPRA 750 MG in D5W 100 ML IV SCH (10:00)
[2016-09-18] MEDS: LOVENOX SUB-Q SCH (10:27)
--- NOTE | 2016-09-18 14:04 | Progress Note ---
Assessment and Plan Spells: Pt presentation at this point is not consistent with epileptic events. Agree with increasing Keppra but would not add another agent at this point. Pt fully neurologically intact. MRI Brain reviewed, no signs of recent seizure(pt's mother reports many). Would consider transfer to an epilepsy monitoring center if possible to try to catch some of these episodes on the EEG. Would only treat with Ativan for spells lasting > 3 mins. Case discussed with Dr. Deluca. Plan of care discussed with the patient and her mother at the bedside. Subjective Date of service: 09/18/16 Principal diagnosis: Seizures Interval history: spoke with pt and her mother at the bedside. Pt had no events overnight. she slept well. After waking this morning she has had several events. Her keppra has been increased. She also got Ativan PRN. On my arrival she is awake, alert and talkative. Asks questions appropriately. does not appear post ictal. Objective - Vital Sign Vital Signs - 12hr 09/18/16 09/18/16 09/18/16 04:25 08:15 11:59 Temperature 97.5 F L 98.4 F Pulse Rate [ 89 85 Left From Monitor] Respiratory 16 18 Rate Blood Pressure 131/85 119/77 [Left Arm] O2 Sat by Pulse 99 100 100 Oximetry - EENT EENT: PERRL - Respiratory Respiratory: lungs clear - Cardiovascular Cardiovascular: regular rate - Neurologic Cranial nerve examination: PERRL, EOMI, V1/V2/V3 grossly intact, face symmetric , tongue midline Detailed motor examination: grossly full strength in - Laboratory Findings CBC and BMP: 09/17/16 05:13 09/17/16 05:13 Abnormal Lab Findings: Abnormal Labs 09/16/16 09/16/16 09/16/16 15:15 15:24 15:25 WBC 3.5 L RDW 12.9 L Lymph % (Auto) [place] % (Auto) Lymph # Seg Neutrophils % Chloride Carbon Dioxide Creatinine 0.6 L Glucose 111 H POC Glucose 109 H Calcium 8.3 L Magnesium 09/16/16 09/16/16 09/16/16 15:28 19:45 19:45 WBC RDW Lymph % (Auto) 12.1 L [place] % (Auto) Lymph # 0.6 L Seg Neutrophils % 84.4 H Chloride Carbon Dioxide 20 L Creatinine 0.5 L Glucose 104 H POC Glucose Calcium 8.0 L Magnesium 1.6 L 09/17/16 09/17/16 05:13 05:13 WBC 3.9 L RDW 12.8 L Lymph % (Auto) [place] % (Auto) 9.4 H Lymph # 1.0 L Seg Neutrophils % Chloride 109.9 H Carbon Dioxide 20 L Creatinine 0.5 L Glucose POC Glucose Calcium 8.1 L Magnesium - Diagnostic Findings Additional findings: MRI Brain with/without catherine(as per body of report) is normal EEG prelim- normal
[2016-09-18] MEDS: ZOFRAN IV PRN (21:46)
[2016-09-18] MEDS: KEPPRA 1,500 MG in D5W 100 ML IV SCH (21:54)
[2016-09-19] MEDS ORDERED: BENADRYL IV PRN (01:39)
[2016-09-19] MEDS: ATIVAN IV PRN ×3 (07:00→16:19)
[2016-09-19] MEDS: KEPPRA 1,500 MG in D5W 100 ML IV SCH ×2 (09:51→22:43)
[2016-09-19] MEDS: LOVENOX SUB-Q SCH (09:54)
--- NOTE | 2016-09-19 10:10 | Discharge Summary ---
Providers - Providers Date of Admission: 09/16/16 17:30 Date of discharge: 09/19/16 Attending physician: DILLON BARNES 09/16/16 17:29 Consult to Physician [CONS] Routine Consulting Provider: ISRAEL WEAVER Reason For Exam: seizure disorder Place consult to:: Office Notified:: yes Phone number called:: [phone] Was contact made?: Yes If yes, spoke with:: left voicemail Time called:: 19:40 Primary care physician: RUBEN CAVAZOS Hospitalization Reason for admission: sz Condition: Good Hospital course: 35-year-old female underwent outpatient procedure for left bloody nipple discharge and left breast intraductal papilloma who developed seizures 2 postoperatively. Seizures were described as generalized tonic-clonic lasting for approximately 1 minute and 15 minutes apart. Patient was admitted to the hospital for further evaluation. Patient developed 2 more seizures the morning after admission. Patient had several seizures during hospitalization over the past 2 days. Patient was seen by neurology in consultation with initially treated with Keppra 750 mg twice a day which was later increased to 1500 mg twice a day. Patient receive Ativan for breakthrough seizures. MRI was completed and found to be negative. EEG is pending. Neurology recommended discharge to a facility that can perform 24-hour continuous EEG monitoring and further follow-up with neurology. Arrangements have been made for the patient be transferred to the hospital. Dedicated discharge time 35 minutes. Disposition: DC/TX ANOTHER TYPE HEALTHCARE Time spent for discharge: 35 - Discharge Diagnoses (1) Breast mass, left Status: Acute (2) Encephalopathy acute Status: Acute (3) Seizure disorder Status: Acute Core Measure Documentation - Palliative Care Palliative Care/ Comfort Measures: Not Applicable - Core Measures Any of the following diagnoses?: none Exam - Constitutional Vitals: Temp Pulse Resp BP Pulse Ox 98.3 F 84 18 126/92 100 09/19/16 08:00 09/19/16 08:00 09/19/16 08:00 09/19/16 08:00 09/19/16 08:00 General appearance: Present: no acute distress, well-nourished - EENT Eyes: Present: PERRL ENT: hearing intact, clear oral mucosa - Neck Neck: Present: supple, normal ROM - Respiratory Respiratory effort: normal Respiratory: bilateral: CTA - Cardiovascular Heart Sounds: Present: S1 & S2. Absent: rub, click - Extremities Extremities: pulses symmetrical, No edema Peripheral Pulses: within normal limits - Abdominal General gastrointestinal: Present: soft, non-tender, non-distended, normal bowel sounds Female genitourinary: Present: normal - Integumentary Integumentary: Present: clear, warm, dry - Musculoskeletal Musculoskeletal: gait normal, strength equal bilaterally - Psychiatric Psychiatric: appropriate mood/affect, intact judgment & insight - Neurologic Neurologic: CNII-XII intact, moves all extremities Plan Activity: no restrictions Weight Bearing Status: Full Weight Bearing Diet: regular Follow up with: GORDON MATOS MD [Staff Physician] - 7 Days RUBEN CAVAZOS MD [Primary Care Provider] - 7 Days Forms: Outpatient [facility] DC Inst. Prescriptions: HYDROcodone/APAP 5-325 [[place] 5/325] 1 each PO Q6HR PRN #30 tablet PRN Reason: Pain
[2016-09-19] MEDS ORDERED: ATIVAN IV STA (20:37)
--- NOTE | 2016-09-19 20:40 | Event Note ---
Date: 09/19/16 Awaiting transfer to [facility]. Continues to seize 4 to 5 times a day. Will add valproic acid [address] Head again.
[2016-09-19] MEDS: D5NS 1,000 ML IV SCH (22:42)
--- NOTE | 2016-09-20 01:35 | Cat Scan Report ---
FINAL REPORT PROCEDURE: CT HEAD/BRAIN WO CON TECHNIQUE: Computerized tomography of the head was performed without contrast material. HISTORY: Rec Seizures COMPARISON: 09/17/2016 FINDINGS: Skull and scalp: Normal. Paranasal sinuses: Normal. Ventricles and subarachnoid spaces: Normal. Cerebrum: No evidence of hemorrhage, acute infarction or mass . Cerebellum and brainstem: No evidence of hemorrhage, acute infarction or mass. Vasculature: Normal. Comments: None. IMPRESSION: Normal Examination
[2016-09-20] MEDS: KEPPRA 1,500 MG in D5W 100 ML IV SCH ×2 (10:20→22:00)
[2016-09-20] MEDS: LOVENOX SUB-Q SCH (10:21)
--- NOTE | 2016-09-20 11:08 | Progress Note ---
Assessment and Plan Assessment and plan: 1. Status epilepticus/Seizure disorder. EEG pending. MRI is negative. Neurology following. Patient has had more seizures since admission. Continue Keppra IV. Valproic acid was added last evening. Continue seizure precautions and monitor closely. Patient with no new seizure activity since the addition of valproic acid. 2. Left breast intraductal papilloma. Patient is status post excisional biopsy. Continue per surgery. 3. Acute encephalopathy. Etiology secondary to #1. Resolved. Continue seizure precautions a monitor closely. - Patient Problems (1) Breast mass, left Current Visit: Yes Status: Acute (2) Encephalopathy acute Current Visit: Yes Status: Acute (3) Seizure disorder Current Visit: Yes Status: Acute History Interval history: 35-year-old female underwent outpatient procedure for left bloody nipple discharge and left breast intraductal papilloma who developed seizures 2 postoperatively. Seizures were described as generalized tonic-clonic. Patient has had several seizures since admission. Again, patient had more episodes of seizure activity last evening. Mother reports approximate 7-8 seizures at approximately 7 PM. No new seizure activity since that time. Hospitalist Physical - Constitutional Vitals: Temp Pulse Resp BP Pulse Ox 98 F 85 20 134/94 98 09/20/16 07:00 09/20/16 07:00 09/20/16 07:00 09/20/16 07:00 09/20/16 07:00 General appearance: Present: no acute distress, well-nourished - EENT Eyes: Present: PERRL, EOM intact ENT: hearing intact, clear oral mucosa, dentition normal - Neck Neck: Present: supple, normal ROM - Respiratory Respiratory effort: normal Respiratory: bilateral: CTA - Cardiovascular Rhythm: regular Heart Sounds: Present: S1 & S2. Absent: gallop, rub - Extremities Extremities: no ischemia, No edema, Full ROM - Abdominal General gastrointestinal: soft, non-tender, non-distended, normal bowel sounds - Integumentary Integumentary: Present: clear, warm, dry - Neurologic Neurologic: CNII-XII intact, moves all extremities Results - Labs CBC & Chem 7: 09/17/16 05:13 09/17/16 05:13 Labs: Laboratory Last Values WBC 3.9 K/mm3 (4.5-11.0) L 09/17/16 05:13 RBC 4.13 M/mm3 (3.65-5.03) 09/17/16 05:13 Hgb 12.0 gm/dl (10.1-14.3) 09/17/16 05:13 Hct 36.3 % (30.3-42.9) 09/17/16 05:13 MCV 88 fl (79-97) 09/17/16 05:13 MCH 29 pg (28-32) 09/17/16 05:13 MCHC 33 % (30-34) 09/17/16 05:13 RDW 12.8 % (13.2-15.2) L 09/17/16 05:13 Plt Count 152 K/mm3 (140-440) 09/17/16 05:13 Lymph % (Auto) 26.4 % (13.4-35.0) 09/17/16 05:13 [place] % (Auto) 9.4 % (0.0-7.3) H 09/17/16 05:13 Eos % (Auto) 0.7 % (0.0-4.3) 09/17/16 05:13 Baso % (Auto) 0.5 % (0.0-1.8) 09/17/16 05:13 Lymph # 1.0 K/mm3 (1.2-5.4) L 09/17/16 05:13 [place] # 0.4 K/mm3 (0.0-0.8) 09/17/16 05:13 Eos # 0.0 K/mm3 (0.0-0.4) 09/17/16 05:13 Baso # 0.0 K/mm3 (0.0-0.1) 09/17/16 05:13 Seg Neutrophils % 63.0 % (40.0-70.0) 09/17/16 05:13 Seg Neutrophils # 2.5 K/mm3 (1.8-7.7) 09/17/16 05:13 Sodium 142 mmol/L (137-145) 09/17/16 05:13 Potassium 3.7 mmol/L (3.6-5.0) 09/17/16 05:13 Chloride 109.9 mmol/L (98-107) H 09/17/16 05:13 Carbon Dioxide 20 mmol/L (22-30) L 09/17/16 05:13 Anion Gap 16 mmol/L 09/17/16 05:13 BUN 8 mg/dL (7-17) 09/17/16 05:13 Creatinine 0.5 mg/dL (0.7-1.2) L 09/17/16 05:13 Estimated GFR > 60 ml/min 09/17/16 05:13 BUN/Creatinine Ratio 16.00 % 09/17/16 05:13 Glucose 88 mg/dL (65-100) 09/17/16 05:13 POC Glucose 109 (70-105) H 09/16/16 15:15 Calcium 8.1 mg/dL (8.4-10.2) L 09/17/16 05:13 Phosphorus 2.8 mg/dL (2.5-4.5) 09/16/16 15:28 Magnesium 1.6 mg/dL (1.7-2.3) L 09/16/16 15:28
--- NOTE | 2016-09-21 10:00 | Progress Note ---
Assessment and Plan Assessment and plan: 1. Status epilepticus/Seizure disorder. Improved. EEG pending. MRI is negative. Neurology following. Patient with no new seizure activity 24 hours. Continue Keppra and valproic acid. Await [place] transfer for further evaluation and 24 hour EEG monitoring. 2. Left breast intraductal papilloma. Patient is status post excisional biopsy. Continue per surgery. 3. Acute encephalopathy. Etiology secondary to #1. Resolved. Continue seizure precautions a monitor closely. - Patient Problems (1) Breast mass, left Current Visit: Yes Status: Acute (2) Encephalopathy acute Current Visit: Yes Status: Acute (3) Seizure disorder Current Visit: Yes Status: Acute History Interval history: 35-year-old female underwent outpatient procedure for left bloody nipple discharge and left breast intraductal papilloma who developed seizures 2 postoperatively. Seizures were described as generalized tonic-clonic. Patient has had several seizures since admission. However, patient had no new seizure episodes in the past 24 hours. Hospitalist Physical - Constitutional Vitals: Temp Pulse Resp BP Pulse Ox 98.1 F 85 20 126/81 98 09/21/16 07:50 09/21/16 07:50 09/21/16 07:50 09/21/16 07:50 09/21/16 07:50 General appearance: Present: no acute distress, well-nourished - EENT Eyes: Present: PERRL, EOM intact ENT: hearing intact, clear oral mucosa, dentition normal - Neck Neck: Present: supple, normal ROM - Respiratory Respiratory effort: normal Respiratory: bilateral: CTA - Cardiovascular Rhythm: regular Heart Sounds: Present: S1 & S2. Absent: gallop, rub - Extremities Extremities: no ischemia, No edema, Full ROM - Abdominal General gastrointestinal: soft, non-tender, non-distended, normal bowel sounds - Integumentary Integumentary: Present: clear, warm, dry - Neurologic Neurologic: CNII-XII intact, moves all extremities Results - Labs CBC & Chem 7: 09/17/16 05:13 09/17/16 05:13 Labs: Laboratory Last Values WBC 3.9 K/mm3 (4.5-11.0) L 09/17/16 05:13 RBC 4.13 M/mm3 (3.65-5.03) 09/17/16 05:13 Hgb 12.0 gm/dl (10.1-14.3) 09/17/16 05:13 Hct 36.3 % (30.3-42.9) 09/17/16 05:13 MCV 88 fl (79-97) 09/17/16 05:13 MCH 29 pg (28-32) 09/17/16 05:13 MCHC 33 % (30-34) 09/17/16 05:13 RDW 12.8 % (13.2-15.2) L 09/17/16 05:13 Plt Count 152 K/mm3 (140-440) 09/17/16 05:13 Lymph % (Auto) 26.4 % (13.4-35.0) 09/17/16 05:13 [place] % (Auto) 9.4 % (0.0-7.3) H 09/17/16 05:13 Eos % (Auto) 0.7 % (0.0-4.3) 09/17/16 05:13 Baso % (Auto) 0.5 % (0.0-1.8) 09/17/16 05:13 Lymph # 1.0 K/mm3 (1.2-5.4) L 09/17/16 05:13 [place] # 0.4 K/mm3 (0.0-0.8) 09/17/16 05:13 Eos # 0.0 K/mm3 (0.0-0.4) 09/17/16 05:13 Baso # 0.0 K/mm3 (0.0-0.1) 09/17/16 05:13 Seg Neutrophils % 63.0 % (40.0-70.0) 09/17/16 05:13 Seg Neutrophils # 2.5 K/mm3 (1.8-7.7) 09/17/16 05:13 Sodium 142 mmol/L (137-145) 09/17/16 05:13 Potassium 3.7 mmol/L (3.6-5.0) 09/17/16 05:13 Chloride 109.9 mmol/L (98-107) H 09/17/16 05:13 Carbon Dioxide 20 mmol/L (22-30) L 09/17/16 05:13 Anion Gap 16 mmol/L 09/17/16 05:13 BUN 8 mg/dL (7-17) 09/17/16 05:13 Creatinine 0.5 mg/dL (0.7-1.2) L 09/17/16 05:13 Estimated GFR > 60 ml/min 09/17/16 05:13 BUN/Creatinine Ratio 16.00 % 09/17/16 05:13 Glucose 88 mg/dL (65-100) 09/17/16 05:13 POC Glucose 109 (70-105) H 09/16/16 15:15 Calcium 8.1 mg/dL (8.4-10.2) L 09/17/16 05:13 Phosphorus 2.8 mg/dL (2.5-4.5) 09/16/16 15:28 Magnesium 1.6 mg/dL (1.7-2.3) L 09/16/16 15:28
[2016-09-21] MEDS: KEPPRA 1,500 MG in D5W 100 ML IV SCH ×2 (10:35→21:45)
[2016-09-21] MEDS: LOVENOX SUB-Q SCH (10:36)
[2016-09-22 08:25] VITALS: BP 105/67
--- NOTE | 2016-09-22 09:47 | Discharge Summary ---
Providers - Providers Date of Admission: 09/16/16 17:30 Date of discharge: 09/22/16 Attending physician: DILLON BARNES 09/16/16 17:29 Consult to Physician [CONS] Routine Consulting Provider: ISRAEL WEAVER Reason For Exam: seizure disorder Place consult to:: Office Notified:: yes Phone number called:: [phone] Was contact made?: Yes If yes, spoke with:: left voicemail Time called:: 19:40 Primary care physician: RUBEN CAVAZOS Hospitalization Reason for admission: sz Condition: Good Hospital course: This is a 35 YO F who was admitted after having a "seizure" post breast biopsy. There are no specific descriptions but supposedly pt had a tonic clonic event. Pt's family at bedside says pt has had several episodes since being on the floor, she stares with eyes open and all extremities shake. Patient either has a very brief or no post ictal phase. Pt apparently can hear everything going on around her but can not respond. Pt had a seizure with anesthesia previously (tubal ligation). Patient was seen by neurology in consultation. Patient underwent EEG and MRI. Both studies were found to be negative. Patient continued to have several episodes to hospitalization. Neurology recommended 24 hour EEG monitoring. Patient was treated with initially Keppra IV which was later doubled in dose. Later, patient had valproic acid added to the regimen. Seizures abated for greater than 48 hours. Therefore, it was felt patient could be discharged home to follow-up as an outpatient with neurology and EEG monitoring. Patient is to have no driving until followed up by neurology and cleared. Dedicated discharge time 35 minutes. Disposition: DISCHARGED TO HOME OR SELFCARE - Discharge Diagnoses (1) Breast mass, left Status: Acute (2) Encephalopathy acute Status: Acute (3) Seizure disorder Status: Acute Core Measure Documentation - Palliative Care Palliative Care/ Comfort Measures: Not Applicable - Core Measures Any of the following diagnoses?: none Exam - Constitutional Vitals: Temp Pulse Resp BP Pulse Ox 98.3 F 81 20 105/67 99 09/22/16 07:45 09/22/16 07:53 09/22/16 07:45 09/22/16 07:45 09/22/16 07:45 General appearance: Present: no acute distress, well-nourished - EENT Eyes: Present: PERRL ENT: hearing intact, clear oral mucosa - Neck Neck: Present: supple, normal ROM - Respiratory Respiratory effort: normal Respiratory: bilateral: CTA - Cardiovascular Heart Sounds: Present: S1 & S2. Absent: rub, click - Extremities Extremities: pulses symmetrical, No edema Peripheral Pulses: within normal limits - Abdominal General gastrointestinal: Present: soft, non-tender, non-distended, normal bowel sounds Female genitourinary: Present: normal - Integumentary Integumentary: Present: clear, warm, dry - Musculoskeletal Musculoskeletal: gait normal, strength equal bilaterally - Psychiatric Psychiatric: appropriate mood/affect, intact judgment & insight - Neurologic Neurologic: CNII-XII intact, moves all extremities Plan Activity: no driving until cleared by PCP Weight Bearing Status: Full Weight Bearing Diet: regular Follow up with: GORDON MATOS MD [Staff Physician] - 7 Days RUBEN CAVAZOS MD [Primary Care Provider] - 7 Days ISRAEL WEAVER MD [Staff Physician] - 7 Days Forms: Outpatient [facility] DC Inst. Prescriptions: HYDROcodone/ACETAMINOPHEN [Vicodin HP 10-300 mg TAB] 1 each PO Q6HR #12 tablet HYDROcodone/APAP 5-325 [[place] 5/325] 1 each PO Q6HR PRN #30 tablet PRN Reason: Pain levETIRAcetam [Keppra TAB] 1,500 mg PO BID #60 tablet Valproic Acid [Depakene] 500 mg PO Q8HR #45 capsule
[2016-09-22] MEDS: LOVENOX SUB-Q SCH (10:00)
[2016-09-22] MEDS: KEPPRA 1,500 MG in D5W 100 ML IV SCH (10:00)
== END 2016-09-22 13:02 | disposition home or self-care (01) | DRG 606 ==
LOC: OR 07:21 → 2B-SURG 17:30
PROVIDERS: ADMIT Internal Medicine; ATTEND Hospitalist
PROC: 0HBX3ZX Excision of Left Nipple, Percutaneous Approach, Diagnostic (ICD-10-PCS; principal; 2016-09-16)
PROC: 0HBU3ZX Excision of Left Breast, Percutaneous Approach, Diagnostic (ICD-10-PCS; principal; 2016-09-16)
DX: D24.2 Benign neoplasm of left breast (principal); G93.40 Encephalopathy, unspecified; N64.52 Nipple discharge; Z82.49 Family history of ischemic heart disease and other diseases of the circulatory system; Z98.51 Tubal ligation status; Z88.8 Allergy status to other drugs, medicaments and biological substances; Z91.018 Allergy to other foods; G40.901 Epilepsy, unspecified, not intractable, with status epilepticus
CPT/HCPCS: 36415; 70450; 70553; 76098; 80048; 82962; 83735; 84100; 85025; 85027; 88305; 88307; 93005; 93010; 94760; 95819; A9577; J0690; J1100; J1170; J1650; J1885; J1953; J2060; J2250; J2405; J2704; J3475; J7030; J7042

== ENCOUNTER 2018-08-17 14:40 | Outpatient (CLI) | payer BC ==
--- NOTE | 2018-08-19 15:25 | Magnetic Resonance Report ---
BILATERAL BREAST MRI WITHOUT AND WITH CONTRAST: 08/17/18 14:40:00 CLINICAL: 37-year-old with history of right breast pain, left breast intraductal papilloma and new complaint of right brownish nipple discharge. COMPARISON:08/02/18 bilateral mammogram. TECHNIQUE: Axial 1.0-mm T1 without, axial high resolution 2.0-mm T2 and axial 1.0-mm dynamic Vibrant high-resolution postcontrast T1 fat saturation sequences on a 1.5 [place] magnet. The examination was performed with an 8 channel dedicated [place] breast coil. Post processing with CAD and subtraction was performed on an [employer] workstation. 20 cc of Multihance was injected 14.0 for the contrast portion of the exam. Consent was obtained prior to the administration of the contrast. FINDINGS: Right: Minimal background parenchymal enhancement. No mass or suspicious enhancement. No suspicious lymph nodes. Left: Minimal background parenchymal enhancement. No mass or suspicious enhancement. No suspicious lymph nodes. IMPRESSION: Normal study. Recommend routine mammographic screening. BI-RADS 1 - - Negative
== END 2018-08-17 14:41 | disposition home or self-care (01) ==
LOC: SPVIMAG 14:40
PROVIDERS: ATTEND Surgery
DX: N64.52 Nipple discharge (principal); N64.4 Mastodynia; N60.82 Other benign mammary dysplasias of left breast
CPT/HCPCS: A9577; C8908; 77049

== ENCOUNTER 2021-03-12 09:01 | Outpatient (CLI) | payer BC ==
[2021-03-12 11:13] LABS: Hematocrit 35.3 % (30.3-42.9); Hemoglobin 11.7 gm/dl (10.1-14.3); Mean Corpuscular HGB Conc 33 % (30-34); Mean Corpuscular Volume 92 fl (79-97); Platelet Count 161 K/mm3 (140-440); Red Blood Count 3.82 M/mm3 (3.65-5.03); Red Cell Distribution Width 15.5 % (13.2-15.2)
[2021-03-12 11:40] LABS: Alanine Aminotransferase 11 units/L (7-56); Uric Acid 3.9 mg/dL (3.5-7.6)
[2021-03-12 12:17] VITALS: BP 113/74
[2021-03-12 13:08] LABS: Bilirubin,Urine NEG (Negative); Blood,Urine NEG (Negative); Color,Urine Yellow (Yellow); Mucus,Urine FEW /HPF; Protein,Urine <15 mg/dL mg/dL (Negative); Urobilinogen,Urine < 2.0 mg/dL (<2.0); WBC,Urine < 1.0 /HPF (0.0-6.0)
== END 2021-03-12 12:23 | disposition home or self-care (01) ==
LOC: TRG 09:01 → APU 09:04 → TRG 12:23
PROVIDERS: ATTEND Student in an Organized Health Care Education/Training Program
DX: O13.3 Gestational [pregnancy-induced] hypertension without significant proteinuria, third trimester (principal); Z3A.36 36 weeks gestation of pregnancy
CPT/HCPCS: 36415; 59025; 81001; 82565; 83615; 84450; 84460; 84550; 85027

== ENCOUNTER 2021-03-27 15:03 | Inpatient (IN) | payer BC ==
--- NOTE | 2021-03-27 17:11 | History and Physical Report ---
History of Present Illness Date of examination: 03/27/21 Date of admission: 03/27/2021 Chief complaint: I'm here for my induction. History of present illness: Pt presents for IOL per [facility] recommendations d/t AMA. EDC Confirmation: 04/03/2021 Gestational Age: 39 weeks on admission Past History : 4 Premature Births: 2 Living Children: 2 Para: 2 Spont. 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 was taking meds but d/c after one week of use due to (+) upt. Risk Factors: Smoked Tobacco Use: Never smoker Smokeless Tobacco Use: Never Drug use: no HIV high-risk behavior: no Alcohol use: yes Exercise: no Seatbelt use: 100 % Past Medical History Abnormal PAP: negative EMMANUELLE Exposure: negative Infertility: negative Uterine Anomaly: negative Uterine Surgery (not C/S): negative Other Gynecologic Problems: negative Medical History Comments: negative Social Hx: Patient is getting degree on line 2015 officially . getting remarried 2016 not yet. sex life much better Infection History HIV Risk Eval: no Partner hx. of genital herpes: no Rash, Viral, or Febrile illness since last LMP? no Genetic History ADVANCED MATERNAL AGE Congenital Heart Defect: Mom: no Dad: no Harriet Disease: Mom: no Dad: no Thalassemia Mom: no Dad: no Neural Tube Defect Mom: no Dad: no Down's Syndrome Mom: no Dad: no Warner-Sachs Mom: no Dad: no Sickle Cell Disease/Trait Mom: no Dad: no Hemophilia Mom: no Dad: no Muscular Dystrophy Mom: no Dad: no Cystic Fibrosis Mom: no Dad: no Crisp Chorea Mom: no Dad: no Mental Retardation Mom: no Dad: no Fragile X Mom: no Dad: no Other Genetic/Chromosomal Disorder Mom: no Dad: no Child w/other defect Mom: no Dad: no Current Allergies (reviewed today): * PHENERGAN (Critical) * DEMEROL (Critical) * ANTS (Critical) * OLEIN/ PEANUT OIL (Critical) * SUVOFURANE (Critical) * PROPOFOL (Critical) KEPPRA (Critical) ATIVAN (LORAZEPAM TABS) (Critical) * LIDOCAINE (Critical) BACTRIM (SULFAMETHOXAZOLE-TRIMETHOPRIM TABS) (Critical) * VERSED (Critical) * CHICKEN (Critical) * GRAPEFRUIT (Critical) * WALNUT (Critical) Past History Past Medical History: seizure (Possible seizure disorder), migraines, other (Pituitary tumor dx 05/2020 with elevated prolactin level) Past Surgical History: no surgical history Family/Genetic History: none Social history: no significant social history, - Obstetrical History Expected Date of Delivery: 04/03/21 Actual Gestation: 39 Week(s) 0 Day(s) : 4 Para: 2 Hx # Term Pregnancies: 0 Number of Pregnancies: 2 ( deliveries @ 34 & 36 wks) Spontaneous Abortions: 1 Induced : 0 Number of Living Children: 2 Medications and Allergies Allergies Allergy/AdvReac Type Severity Reaction Status Date / Time walnut Allergy Unknown Unknown Verified 03/27/21 15:49 cashew nut Allergy Unknown Verified 03/27/21 15:50 chicken derived Allergy Unknown Verified 03/27/21 15:50 grapefruit Allergy Swelling Verified 09/12/16 10:47 of throat, hives, respiratory distress levetiracetam [From Keppra] Allergy Seizure Verified 03/27/21 15:51 lorazepam [From Ativan] Allergy Seizure Verified 03/27/21 15:51 meperidine HCl [From Demerol] Allergy PUTS ME IN Verified 09/12/16 10:47 A TRANCE LIKE STATE midazolam [From Versed] Allergy Seizure Verified 03/27/21 15:51 propofol Allergy Seizure Verified 03/27/21 15:51 lidocaine AdvReac Seizure Verified 03/27/21 15:54 promethazine HCl AdvReac PUTS ME IN Verified 03/27/21 17:39 [From Phenergan] A TRANCE LIKE STATE Home Medications Medication Instructions Recorded Confirmed Last Taken Type ALBUTEROL NEB's 2 puff INHALATION PRN PRN 03/27/21 03/27/21 03/27/21 10:00 History Aspirin BABY CHEW TAB 81 mg PO DAILY 03/27/21 03/27/21 03/26/21 History Vitamin 1 tab PO DAILY 03/27/21 03/27/21 03/26/21 History Review of Systems All systems: negative - Vital Signs Vital signs: Vital Signs Pulse BP Pulse Ox 61 121/85 96 03/27/21 15:38 03/27/21 15:38 03/27/21 15:38 Temp Pulse Resp BP Pulse Ox 89 121/85 97 03/27/21 17:08 03/27/21 15:38 03/27/21 17:08 - Physical Exam Breasts: Positive: deferred Cardiovascular: Regular rate Lungs: Positive: Normal air movement Abdomen: Positive: normal appearance, soft Genitourinary (Female): Positive: normal external genitalia, normal perenium Vulva: both: normal Vagina: Positive: normal moisture Extremities: Positive: normal - Obstetrical FHR: category 1 Uterine Contraction Monitor Mode: External Cervical Dilatation: 0 Cervical Effacement Percentage: 20 (Cervix behind 's head.) station: -2 Uterine Contraction Pattern: Absent Results All other labs normal. GBS NEGATIVE HBsAg Screen Negative Negative *1 RPR Non Reactive Non Reactive *2 Rubella Antibodies, IgG 5.96 index Immune >0.99 *3 Non-immune <0.90 Equivocal 0.90 - 0.99 Immune >0.99 ABO Grouping O *4 Rh Factor Positive *5 Please note: Prior records for this patient's ABO / Rh type are not available for additional verification. Antibody Screen Negative Negative *6 Tests: (5) HIV Ag/Ab with Reflex ([id number]) HIV Screen 4th Generation wRfx Non Reactive Non Reactive *34 Tests: (6) HCV Antibody reflex to ACACIA ([id number]) ! HCV Ab <0.1 s/co ratio 0.0-0.9 *35 Tests: (7) Interpretation: ([id number]) ! Interpretation: SPRCS *36 Negative Not infected with HCV, unless recent infection is suspected or other evidence exists to indicate HCV infection. Assessment and Plan A: 40 y.o. @ 39 wks, IOL per AMFM recommendations d/t AMFM. Cervical exam /2. - Patient Problems (1) 39 weeks gestation of Onset Date: ~03/27/21 Current Visit: Yes Status: Acute Plan to address problem: Admit to labor and delivery. Draw admission labs and initiate IV. Cervidil to start IOL. (2) Advanced maternal age in multigravida Current Visit: Yes Status: Acute Qualifiers: Trimester: third trimester Qualified Code(s): O09.523 - Supervision of elderly multigravida, third trimester
[2021-03-27] MEDS ORDERED: BUTORPHANOL 2 MG/1 ML INJ IV PRN (17:12)
[2021-03-27] MEDS ORDERED: METHYLERGONOVINE MALEATE 0.2 MG/ML VIAL IM PRN (17:12)
[2021-03-27] MEDS ORDERED: CARBOPROST TROMETHAMINE 250 MCG/1 ML INJ IM PRN (17:12)
[2021-03-27] MEDS ORDERED: miSOPROStol 200 MCG TAB PR PRN (17:12)
[2021-03-27] MEDS ORDERED: OXYTOCIN 10 UNIT/1 ML INJ IM PRN (17:12)
[2021-03-27] MEDS ORDERED: ACETAMINOPHEN 500 MG TAB PO PRN (17:12)
[2021-03-27] MEDS ORDERED: MINERAL OIL 30 ML ORAL LIQD PO PRN (17:12)
[2021-03-27] MEDS ORDERED: LOPERAMIDE 2 MG CAP PO PRN (17:12)
[2021-03-27] MEDS ORDERED: PROMETHAZINE 25 MG TAB PO PRN (17:12)
[2021-03-27] MEDS ORDERED: TERBUTALINE 1 MG/1 ML INJ SUB-Q PRN (17:12)
[2021-03-27] MEDS ORDERED: fentaNYL 100 MCG/2 ML INJ IV PRN (17:12)
[2021-03-27] MEDS ORDERED: ONDANSETRON 4 MG/2 ML INJ IV PRN (17:12)
[2021-03-27] MEDS ORDERED: NALOXONE 0.4 MG/1 ML INJ IV PRN (17:12)
[2021-03-27] MEDS ORDERED: LACTATED RINGERS 1,000 ML IV SCH (17:15)
[2021-03-27] MEDS ORDERED: ePHEDrine SULFATE 50 MG/1 ML INJ IV PRN (17:35)
[2021-03-27] MEDS ORDERED: LIDOCAINE (2%) 20 MG/1 ML VIAL 20 ML MDV INFILTRATI ONE (17:45)
[2021-03-27] MEDS ORDERED: OXYTOCIN DRIP 30 UNITS/500 ML BAG IV SCH (18:00)
[2021-03-27] MEDS ORDERED: DINOPROSTONE 10 MG VAG SUPP VG ONE (18:30)
[2021-03-27 19:18] LABS: Hematocrit 37.7 % (30.3-42.9); Hemoglobin 12.5 gm/dl (10.1-14.3); Mean Corpuscular HGB Conc 33 % (30-34); Mean Corpuscular Volume 93 fl (79-97); Platelet Count 163 K/mm3 (140-440); Red Blood Count 4.04 M/mm3 (3.65-5.03); Red Cell Distribution Width 15.7 % (13.2-15.2)
--- NOTE | 2021-03-28 08:01 | Progress Note ---
Assessment and Plan Plan of care discussed. Questions encouraged and answered. Pt verbalizes understanding and agrees to plan of care. - Patient Problems (1) 39 weeks gestation of Onset Date: ~03/27/21 Current Visit: Yes Status: Acute (2) Advanced maternal age in multigravida Current Visit: Yes Status: Acute Qualifiers: Trimester: third trimester Qualified Code(s): O09.523 - Supervision of elderly multigravida, third trimester Subjective - Subjective Date of service: 03/28/21 Principal diagnosis: IOL @ 39wks, AMA Patient reports: movement normal, no new complaints, no loss of fluid, no vaginal bleeding, no contractions Objective - Vital Signs Vital Signs: Vital Signs - 12hr 03/27/21 03/27/21 03/27/21 20:06 20:11 20:16 Temperature Pulse Rate 100 H 91 H 96 H Blood Pressure O2 Sat by Pulse 97 97 97 Oximetry 03/27/21 03/27/21 03/27/21 20:21 20:26 20:31 Temperature Pulse Rate 92 H 102 H 93 H Blood Pressure O2 Sat by Pulse 98 97 98 Oximetry 03/27/21 03/27/21 03/27/21 20:36 20:38 20:41 Temperature Pulse Rate 93 H 100 H 96 H Blood Pressure O2 Sat by Pulse 96 94 98 Oximetry 03/27/21 03/27/21 03/27/21 20:46 20:51 20:53 Temperature Pulse Rate 92 H 95 H 96 H Blood Pressure 108/72 O2 Sat by Pulse 98 98 Oximetry 03/27/21 03/27/21 03/27/21 20:54 20:56 21:08 Temperature Pulse Rate 87 105 H Blood Pressure O2 Sat by Pulse 94 96 97 Oximetry 03/27/21 03/27/21 03/27/21 21:13 21:18 21:23 Temperature Pulse Rate 86 94 H 90 Blood Pressure O2 Sat by Pulse 98 98 98 Oximetry 03/27/21 03/27/21 03/27/21 21:28 21:33 21:38 Temperature Pulse Rate 93 H 88 100 H Blood Pressure O2 Sat by Pulse 99 97 97 Oximetry 03/27/21 03/27/21 03/27/21 21:43 21:48 21:52 Temperature Pulse Rate 95 H 92 H 85 Blood Pressure 95/58 O2 Sat by Pulse 97 98 Oximetry 03/27/21 03/27/21 03/27/21 21:53 21:58 22:03 Temperature Pulse Rate 93 H 85 94 H Blood Pressure O2 Sat by Pulse 98 98 99 Oximetry 03/27/21 03/27/21 03/27/21 22:08 22:13 22:18 Temperature Pulse Rate 86 90 86 Blood Pressure O2 Sat by Pulse 99 98 98 Oximetry 03/27/21 03/27/21 03/27/21 22:23 22:28 22:33 Temperature Pulse Rate 94 H 88 87 Blood Pressure O2 Sat by Pulse 97 98 97 Oximetry 03/27/21 03/27/21 03/27/21 22:38 22:43 22:48 Temperature Pulse Rate 87 84 89 Blood Pressure O2 Sat by Pulse 98 97 99 Oximetry 03/27/21 03/27/21 03/27/21 22:52 22:53 22:58 Temperature Pulse Rate 88 89 85 Blood Pressure 103/72 O2 Sat by Pulse 97 97 Oximetry 03/27/21 03/27/21 03/27/21 23:03 23:04 23:08 Temperature Pulse Rate 86 85 85 Blood Pressure O2 Sat by Pulse 97 93 97 Oximetry 03/27/21 03/27/21 03/27/21 23:13 23:18 23:19 Temperature Pulse Rate 79 87 86 Blood Pressure O2 Sat by Pulse 94 97 94 Oximetry 03/27/21 03/27/21 03/27/21 23:23 23:28 23:33 Temperature Pulse Rate 84 86 84 Blood Pressure O2 Sat by Pulse 97 94 98 Oximetry 03/27/21 03/27/21 03/27/21 23:38 23:43 23:48 Temperature Pulse Rate 84 78 82 Blood Pressure O2 Sat by Pulse 97 92 97 Oximetry 03/27/21 03/27/21 03/27/21 23:52 23:53 23:58 Temperature Pulse Rate 82 85 84 Blood Pressure 98/55 O2 Sat by Pulse 97 98 Oximetry 03/28/21 03/28/21 03/28/21 00:03 00:08 00:13 Temperature Pulse Rate 85 90 86 Blood Pressure O2 Sat by Pulse 98 98 97 Oximetry 03/28/21 03/28/21 03/28/21 00:21 00:22 00:27 Temperature Pulse Rate 52 L 102 H 83 Blood Pressure O2 Sat by Pulse 93 96 99 Oximetry 03/28/21 03/28/21 03/28/21 00:32 00:37 00:42 Temperature Pulse Rate 87 79 79 Blood Pressure O2 Sat by Pulse 97 98 97 Oximetry 03/28/21 03/28/21 03/28/21 00:47 00:52 00:57 Temperature Pulse Rate 88 76 85 Blood Pressure 112/76 O2 Sat by Pulse 98 96 97 Oximetry 03/28/21 03/28/21 03/28/21 01:02 01:07 01:12 Temperature Pulse Rate 81 80 84 Blood Pressure O2 Sat by Pulse 97 96 97 Oximetry 03/28/21 03/28/21 03/28/21 01:17 01:22 01:25 Temperature Pulse Rate 87 86 78 Blood Pressure O2 Sat by Pulse 97 95 94 Oximetry 03/28/21 03/28/21 03/28/21 01:27 01:32 01:37 Temperature Pulse Rate 78 79 84 Blood Pressure O2 Sat by Pulse 98 95 97 Oximetry 03/28/21 03/28/21 03/28/21 01:42 01:44 01:47 Temperature Pulse Rate 76 76 78 Blood Pressure O2 Sat by Pulse 97 94 97 Oximetry 03/28/21 03/28/21 03/28/21 01:51 01:52 01:54 Temperature Pulse Rate 78 79 78 Blood Pressure 104/64 O2 Sat by Pulse 92 95 Oximetry 03/28/21 03/28/21 03/28/21 01:57 02:02 02:07 Temperature Pulse Rate 78 83 86 Blood Pressure O2 Sat by Pulse 97 97 97 Oximetry 03/28/21 03/28/21 03/28/21 02:12 02:17 02:22 Temperature Pulse Rate 83 83 78 Blood Pressure O2 Sat by Pulse 98 97 97 Oximetry 03/28/21 03/28/21 03/28/21 02:27 02:32 02:37 Temperature Pulse Rate 81 83 81 Blood Pressure O2 Sat by Pulse 95 96 97 Oximetry 03/28/21 03/28/21 03/28/21 02:42 02:47 02:52 Temperature Pulse Rate 84 82 76 Blood Pressure 114/75 O2 Sat by Pulse 97 96 97 Oximetry 03/28/21 03/28/21 03/28/21 02:57 03:02 03:07 Temperature Pulse Rate 79 84 76 Blood Pressure O2 Sat by Pulse 93 97 95 Oximetry 03/28/21 03/28/21 03/28/21 03:12 03:17 03:22 Temperature Pulse Rate 81 80 89 Blood Pressure O2 Sat by Pulse 98 98 98 Oximetry 03/28/21 03/28/21 03/28/21 03:27 03:31 03:32 Temperature Pulse Rate 81 80 84 Blood Pressure O2 Sat by Pulse 97 94 97 Oximetry 03/28/21 03/28/21 03/28/21 03:37 03:41 03:42 Temperature Pulse Rate 88 79 80 Blood Pressure O2 Sat by Pulse 97 94 97 Oximetry 03/28/21 03/28/21 03/28/21 03:46 03:47 03:52 Temperature Pulse Rate 76 85 78 Blood Pressure 111/68 O2 Sat by Pulse 92 97 95 Oximetry 03/28/21 03/28/21 03/28/21 03:54 03:57 04:02 Temperature Pulse Rate 76 79 85 Blood Pressure O2 Sat by Pulse 94 95 97 Oximetry 03/28/21 03/28/21 03/28/21 04:03 04:07 04:10 Temperature Pulse Rate 78 81 79 Blood Pressure O2 Sat by Pulse 92 97 93 Oximetry 03/28/21 03/28/21 03/28/21 04:12 04:17 04:18 Temperature Pulse Rate 83 85 80 Blood Pressure O2 Sat by Pulse 96 97 93 Oximetry 03/28/21 03/28/21 03/28/21 04:22 04:25 04:27 Temperature Pulse Rate 81 82 81 Blood Pressure O2 Sat by Pulse 97 94 97 Oximetry 03/28/21 03/28/21 03/28/21 04:32 04:37 04:40 Temperature Pulse Rate 85 83 77 Blood Pressure O2 Sat by Pulse 87 97 90 Oximetry 03/28/21 03/28/21 03/28/21 04:42 04:47 04:52 Temperature Pulse Rate 86 84 83 Blood Pressure 109/68 O2 Sat by Pulse 96 94 95 Oximetry 03/28/21 03/28/21 03/28/21 04:57 05:02 05:07 Temperature Pulse Rate 83 83 80 Blood Pressure O2 Sat by Pulse 96 97 97 Oximetry 03/28/21 03/28/21 03/28/21 05:12 05:17 05:18 Temperature Pulse Rate 83 83 94 H Blood Pressure O2 Sat by Pulse 93 97 92 Oximetry 03/28/21 03/28/21 03/28/21 05:22 05:24 05:27 Temperature Pulse Rate 80 81 83 Blood Pressure O2 Sat by Pulse 97 94 95 Oximetry 03/28/21 03/28/21 03/28/21 05:32 05:37 05:42 Temperature Pulse Rate 84 86 77 Blood Pressure O2 Sat by Pulse 98 98 98 Oximetry 03/28/21 03/28/21 03/28/21 05:47 05:52 05:54 Temperature Pulse Rate 79 81 87 Blood Pressure 126/70 O2 Sat by Pulse 98 96 Oximetry 03/28/21 03/28/21 03/28/21 06:01 06:06 06:11 Temperature Pulse Rate 93 H 92 H 94 H Blood Pressure O2 Sat by Pulse 96 98 98 Oximetry 03/28/21 03/28/21 03/28/21 06:16 06:21 06:26 Temperature 98.7 F Pulse Rate 87 80 86 Blood Pressure O2 Sat by Pulse 97 97 96 Oximetry 03/28/21 03/28/21 03/28/21 06:30 06:31 06:36 Temperature Pulse Rate 85 87 90 Blood Pressure O2 Sat by Pulse 94 97 95 Oximetry 03/28/21 03/28/21 03/28/21 06:38 06:41 06:46 Temperature Pulse Rate 100 H 89 84 Blood Pressure O2 Sat by Pulse 94 97 97 Oximetry 03/28/21 03/28/21 03/28/21 06:51 06:52 06:56 Temperature Pulse Rate 88 91 H 89 Blood Pressure 103/71 O2 Sat by Pulse 93 97 Oximetry 03/28/21 03/28/21 03/28/21 07:01 07:04 07:06 Temperature 98.1 F Pulse Rate 78 76 86 Blood Pressure 114/73 O2 Sat by Pulse 97 97 Oximetry 03/28/21 03/28/21 03/28/21 07:11 07:16 07:21 Temperature Pulse Rate 89 84 88 Blood Pressure O2 Sat by Pulse 97 97 98 Oximetry 03/28/21 03/28/21 03/28/21 07:26 07:31 07:36 Temperature Pulse Rate 86 91 H 86 Blood Pressure O2 Sat by Pulse 97 97 97 Oximetry 03/28/21 03/28/21 03/28/21 07:41 07:46 07:51 Temperature Pulse Rate 83 83 79 Blood Pressure O2 Sat by Pulse 97 98 98 Oximetry 03/28/21 03/28/21 07:52 07:56 Temperature Pulse Rate 86 82 Blood Pressure 125/84 O2 Sat by Pulse 96 Oximetry - Exam Breasts: deferred Cardiovascular: Regular rate Lungs: Normal air movement Abdomen: Present: normal appearance, soft. Absent: tenderness, guarding Vulva: both: normal Uterus: Present: normal, other (gravid). Absent: tenderness FHR: auscultation normal, category 1 Uterine Contraction Monitor Mode: External Cervical Dilatation: 0.5 Cervical Effacement Percentage: 80 station: -1 Uterine Contraction Pattern: Irregular Uterine Tone Measurement Phase: Resting Extremities: normal - Labs Labs: Abnormal Labs 03/27/21 16:30 RDW 15.7 H Laboratory Results - last 24 hr 03/27/21 03/27/21 03/27/21 16:30 16:30 16:30 WBC 4.7 RBC 4.04 Hgb 12.5 Hct 37.7 MCV 93 MCH 31 MCHC 33 RDW 15.7 H Plt Count 163 Syphilis IgG Antibody Nonreactive Blood Type O POSITIVE Antibody Screen Negative
[2021-03-28] MEDS ORDERED: OXYTOCIN DRIP 30,000 MILLIUNITS/500 ML BAG IV ONE (09:00)
--- NOTE | 2021-03-28 16:47 | Procedure Note ---
OB Delivery Note - Delivery Date of Delivery: 03/28/21 [employer] Supervisor: ZAKI DONG Estimated blood loss: 200cc - Vaginal Delivery presentation: vertex Delivery induction: cervidil Delivery augmentation: pitocin Delivery monitor: external FHT, external uterine Route of delivery: Delivery placenta: spontaneous Delivery cord: 3 umbilical vessels Episiotomy: none Delivery laceration: 2nd degree Delivery repair: vicryl Anesthesia: none Delivery comments: Phone call received @[phone] from Merissa RN reporting baby just delivered spontaneously. CNM to bedside. JOSUÉ team present and in warmer. Placenta delivered spontaneously and sent to pathology. Pitocin infusing IV and Cytotec 800mcg MA placed. Pt with lidocaine allergies; offered IV pain medication for repair. Pt declined and 2nd degree laceration repaired with 3-0 Vicryl SH. Fundus firm with scant lochia. EBL 200mL. Mother and baby left LDR stable - A at 1 minute: 8 at 5 minutes: 9 Infant Gender: Female (6lbs 13oz)
[2021-03-28] MEDS ORDERED: KETOROLAC 30 MG/1 ML INJ IV PRN (18:44)
[2021-03-28] MEDS ORDERED: ONDANSETRON 4 MG/2 ML INJ IV PRN (18:44)
[2021-03-28] MEDS ORDERED: LANOLIN/ZINC/DIMETHICONE (LANSINOH) 7 GM TP PRN (18:44)
[2021-03-28] MEDS ORDERED: MAGNESIUM HYDROXIDE (MOM) ORAL LIQD UDC PO PRN (18:44)
[2021-03-28] MEDS ORDERED: diphenhydrAMINE 25 MG CAP PO PRN (18:44)
[2021-03-28] MEDS ORDERED: PROMETHAZINE 25 MG TAB PO PRN (18:44)
[2021-03-28] MEDS ORDERED: WITCH HAZEL/ GLYCERIN PAD TP PRN (18:44)
[2021-03-28] MEDS ORDERED: ACETAMINOPHEN 325 MG TAB PO PRN (18:44)
[2021-03-28] MEDS: FERROUS SULFATE 325 MG TAB PO SCH (22:15)
[2021-03-28] MEDS: DOCUSATE SODIUM 100 MG CAP PO SCH (22:16)
[2021-03-29] MEDS: IBUPROFEN 600 MG TAB PO SCH ×2 (04:41→12:49)
[2021-03-29] MEDS ORDERED: TETANUS,DIPH,PERTUSS(ACELL) VACCINE 0.5 ML SYRINGE IM ONE (06:00)
[2021-03-29 06:16] LABS: Hematocrit 34.2 % (30.3-42.9); Hemoglobin 11.6 gm/dl (10.1-14.3)
--- NOTE | 2021-03-29 08:27 | Discharge Summary ---
Providers - Providers Date of Admission: 03/27/21 15:04 Date of discharge: 03/29/21 Attending physician: LILIBETH FLEMING 03/28/21 18:44 Consult to Information Scientist [CONS] Routine Reason For Exam: assistance with , SNS Primary care physician: LILIBETH FLEMING Hospitalization Reason for admission: IOL Condition: Stable Pertinent studies: H&H 11.6/34.2 VSSAF Procedures: Hospital course: Uncomplicated and course Disposition: 01 HOME / SELF CARE / HOMELESS Final Discharge Diagnosis (Prints w/discharge instructions): Time spent for discharge: 15 - Discharge Diagnoses (1) (normal spontaneous vaginal delivery) Status: Acute Core Measure Documentation - Palliative Care Palliative Care/ Comfort Measures: Not Applicable - Core Measures Any of the following diagnoses?: none Exam - Constitutional Vitals: Temp Pulse Resp BP Pulse Ox 98.1 F 81 20 114/83 94 03/29/21 04:38 03/29/21 04:38 03/29/21 04:38 03/29/21 04:38 03/29/21 04:38 General appearance: Present: no acute distress, well-nourished - EENT Eyes: Present: PERRL ENT: hearing intact, clear oral mucosa - Neck Neck: Present: supple, normal ROM - Respiratory Respiratory effort: normal Respiratory: bilateral: CTA - Cardiovascular Heart Sounds: Present: S1 & S2. Absent: rub, click - Extremities Extremities: pulses symmetrical, No edema Peripheral Pulses: within normal limits - Abdominal General gastrointestinal: Present: soft, non-tender, non-distended, normal bowel sounds Female genitourinary: Present: normal - Integumentary Integumentary: Present: clear, warm, dry - Musculoskeletal Musculoskeletal: gait normal, strength equal bilaterally - Psychiatric Psychiatric: appropriate mood/affect, intact judgment & insight - Neurologic Neurologic: CNII-XII intact, moves all extremities - Additional findings Additional findings: Lochia scant, fundus firm, VSSAF Plan Activity: no restrictions Diet: regular Follow up with: LILIBETH FLEMING MD [Primary Care Provider] - 7 Days
[2021-03-29] MEDS ORDERED: PRENATAL VIT27-FE FUMARATE-FOLIC ACID VIT TAB PO SCH (10:00)
[2021-03-29] MEDS: DOCUSATE SODIUM 100 MG CAP PO SCH (12:50)
[2021-03-29] MEDS: FERROUS SULFATE 325 MG TAB PO SCH (12:50)
[2021-03-29 17:05] VITALS: BP 123/89
== END 2021-03-29 17:00 | disposition home or self-care (01) | DRG 807 ==
LOC: TRG 15:03 → LD 15:04 → TRG 17:12 → OB 03-28 18:04
PROVIDERS: ADMIT Obstetrics & Gynecology; ATTEND Obstetrics & Gynecology
PROC: 10E0XZZ Delivery of Products of Conception, External Approach (ICD-10-PCS; principal; 2021-03-28)
PROC: 0KQM0ZZ Repair Perineum Muscle, Open Approach (ICD-10-PCS; 2021-03-28)
PROC: 3E0P7VZ Introduction of Hormone into Female Reproductive, Via Natural or Artificial Opening (ICD-10-PCS; 2021-03-28)
DX: O70.1 Second degree perineal laceration during delivery (principal); Z37.0 Single live birth; Z3A.39 39 weeks gestation of pregnancy; Z20.822 Contact with and (suspected) exposure to COVID-19; Z88.8 Allergy status to other drugs, medicaments and biological substances; Z91.018 Allergy to other foods
CPT/HCPCS: 36415; 59025; 59200; 85014; 85018; 85027; 86592; 86850; 86900; 86901; 88307; 99211; G0378; G0463; J2590; J7120; U0003